=== PATIENT | female | born 1990 | race Hispanic/Latino ===

== ENCOUNTER 2021-01-02 02:44 | Emergency (ER) | payer SELFPAY ==
[2021-01-02 03:02] LABS: Basophils % 0.4 % (0-1.3); Hematocrit 42.1 % (36.0-45.0); Lymphocytes % 23.4 % (15.3-44.8); MPV 10.7 fL (7.6-11.3); RBC Red Blood Cell Count 4.91 M/uL (3.86-4.86)
[2021-01-02] MEDS ORDERED: NA CHLORIDE 0.9% 1,000 ML ONE (03:18)
[2021-01-02 03:22] LABS: ALT/SGPT 32 U/L (12-78); AST/SGOT 17 U/L (15-37); Albumin 3.9 g/dL (3.4-5.0); Alkaline Phosphatase 86 U/L (45-117); BUN Blood Urea Nitrogen 11 mg/dL (7-18); Bicarbonate 24 mmol/L (21-32); Bilirubin Direct < 0.1 mg/dL (0-0.2); Bilirubin Total 0.2 mg/dL (0.2-1.0); Glucose Level 145 mg/dL (74-106); Lipase 65 U/L (73-393); Potassium 3.2 mmol/L (3.5-5.1); Protein, Total 8.1 g/dL (6.4-8.2); Sodium Level 141 mmol/L (136-145)
--- NOTE | 2021-01-02 03:36 | EDPHYS ---
Physician Documentation [facility] Name: Batsheva Campbell Age: 30 yrs Sex: Female : 1990 Arrival Date: 01/02/2021 Time: 02:45 Bed 8 Private MD: POLA Physician Tyrel Holman HPI: 01/02 03:31 This 30 yrs old Female presents to ER via EMS with complaints of vomiting and kelvin diarrhea. 03:31 The patient presents with abdominal pain in the upper abdomen, in the lower abdomen. kelvin Onset: The symptoms/episode began/occurred 3 day(s) ago. The patient presents to the emergency department with nausea, vomiting, diarrhea, that is intermittent. Onset: The symptoms/episode began/occurred 3 day(s) ago. Possible causes: unknown. The symptoms are aggravated by nothing. The symptoms are alleviated by nothing. The symptoms do not radiate. Associated signs and symptoms: The patient has no apparent associated signs or symptoms. 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 - Social history:: Smoking status: Patient reports the use of cigarette tobacco products, smokes one-half pack cigarettes per day. - Family history:: not pertinent. ROS: 03:31 Constitutional: Negative for fever, chills, and weight loss, Eyes: Negative for injury, kelvin pain, redness, and discharge, ENT: Negative for injury, pain, and discharge, Neck: Negative for injury, pain, and swelling, Cardiovascular: Negative for chest pain, palpitations, and edema, Respiratory: Negative for shortness of breath, cough, wheezing, and pleuritic chest pain, Back: Negative for injury and pain, : Negative for injury, bleeding, discharge, and swelling, MS/Extremity: Negative for injury and deformity, Skin: Negative for injury, rash, and discoloration, Neuro: Negative for headache, weakness, numbness, tingling, and seizure, Psych: Negative for depression, anxiety, suicide ideation, homicidal ideation, and hallucinations, Allergy/Immunology: Negative for hives, rash, and allergies, Endocrine: Negative for neck swelling, polydipsia, polyuria, polyphagia, and marked weight changes, Hematologic/Lymphatic: Negative for swollen nodes, abnormal bleeding, and unusual bruising. 03:31 Abdomen/GI: Positive for abdominal pain, nausea and vomiting, diarrhea, abdominal cramps. Exam: 03:31 Constitutional: This is a well developed, well nourished patient who is awake, alert, kelvin and in no acute distress. Head/Face: Normocephalic, atraumatic. Eyes: Pupils equal round and reactive to light, extra-ocular motions intact. Lids and lashes normal. Conjunctiva and sclera are non-icteric and not injected. Cornea within normal limits. Periorbital areas with no swelling, redness, or edema. ENT: Nares patent. No nasal discharge, no septal abnormalities noted. Tympanic membranes are normal and external auditory canals are clear. Oropharynx with no redness, swelling, or masses, exudates, or evidence of obstruction, uvula midline. Mucous membranes moist. Neck: Trachea midline, no thyromegaly or masses palpated, and no cervical lymphadenopathy. Supple, full range of motion without nuchal rigidity, or vertebral point tenderness. No Meningismus. Chest/axilla: Normal chest wall appearance and motion. Nontender with no deformity. No lesions are appreciated. Cardiovascular: Regular rate and rhythm with a normal S1 and S2. No gallops, murmurs, or rubs. Normal PMI, no JVD. No pulse deficits. Respiratory: Lungs have equal breath sounds bilaterally, clear to auscultation and percussion. No rales, rhonchi or wheezes noted. No increased work of breathing, no retractions or nasal flaring. Abdomen/GI: Soft, non-tender, with normal bowel sounds. No distension or tympany. No guarding or rebound. No evidence of tenderness throughout. Back: No spinal tenderness. No costovertebral tenderness. Full range of motion. Skin: Warm, dry with normal turgor. Normal color with no rashes, no lesions, and no evidence of cellulitis. MS/ Extremity: Pulses equal, no cyanosis. Neurovascular intact. Full, normal range of motion. Neuro: Awake and alert, GCS 15, oriented to person, place, time, and situation. Cranial nerves II-XII grossly intact. Motor strength 5/5 in all extremities. Sensory grossly intact. Cerebellar exam normal. Normal gait. Psych: Awake, alert, with orientation to person, place and time. Behavior, mood, and affect are within normal limits. 03:31 Musculoskeletal/extremity: DVT Exam: No signs of deep vein thrombosis. no pain, no swelling, no tenderness, negative Homans' sign noted on exam, no appreciated bluish discoloration, no erythema, no increased warmth. Vital Signs: 02:45 BP 137 / 93; Pulse 107; Resp 18; Temp 99.5; Pulse Ox 99% on R/A; Weight 86.64 kg; wg Height 5 ft. 4 in. (162.56 cm); Pain 9/10; 03:12 BP 131 / 85; Pulse 99; Resp 18; Pulse Ox 94% ; ea 02:45 Body Mass Index 32.78 (86.64 kg, 162.56 cm) wg MDM: 03:16 Patient medically screened. kelvin 03:33 Differential diagnosis: Nonspecific abd pain, gastritis, cholecystitis, pancreatitis, kelvin diverticulitis, viral gastroenteritis, gastroenteritis, appendicitis, cholecystitis, Cholelithiasis, diverticulitis, gastritis, non-specific abd pain, Peptic Ulcer Disease, Pyelonephritis, urinary tract infection. Data reviewed: vital signs, nurses notes, lab test result(s), CBC, electrolytes, hepatic panel. Data interpreted: property assessment monitor: rate is 99 beats/min, rhythm is regular, Pulse oximetry: on room air is 94 %. Counseling: I had a detailed discussion with the patient and/or guardian regarding: the historical points, exam findings, and any diagnostic results supporting the discharge/admit diagnosis, lab results, radiology results, the need for outpatient follow up, for definitive care, a family practitioner. 01/02 02:45 Order name: Basic Metabolic Panel; Complete Time: 03:30 wg 01/02 02:45 Order name: CBC with Diff; Complete Time: 03:17 wg 01/02 02:45 Order name: Hepatic Function; Complete Time: 03:30 wg 01/02 02:45 Order name: Lipase; Complete Time: 03:30 wg 01/02 03:50 Order name: Urine Dipstick-Ancillary; Complete Time: 04:24 EDMS 01/02 02:45 Order name: IV Saline Lock; Complete Time: 02:59 wg 01/02 02:45 Order name: Labs collected and sent; Complete Time: 02:59 01/02 02:45 Order name: Urine Dipstick-Ancillary (obtain specimen); Complete Time: 04:07 01/02 04:21 Order name: SARS-COV-2 RT PCR; Complete Time: 04:24 EDMS Administered Medications: 02:58 Drug: NS 0.9% 1000 ml Route: IV; Rate: 1 bolus; Site: left hand; ea 05:08 Follow up: Response: No adverse reaction; IV Status: Completed infusion; IV Intake: ea 800ml 03:43 Drug: Potassium Effervescent Tablet 25 mEq Route: PO; ea 04:06 Follow up: Response: No adverse reaction ea Disposition Summary: 01/02/21 03:35 Discharge Ordered Location: Home [facility] Problem: new kelvin Symptoms: have improved kelvin Condition: Stable kelvin Diagnosis - Vomiting kelvin - Diarrhea, unspecified kelvin - Hypokalemia kelvin Followup: kelvin - With: Private Physician - When: 2 - 3 days - Reason: Recheck today's complaints, Continuance of care, Re-evaluation by your physician Discharge Instructions: - Discharge Summary Sheet kelvin - Food Choices to Help Relieve Diarrhea, Adult kelvin - Diarrhea, Adult kelvin - Nausea and Vomiting, Adult kelvin - Nausea and Vomiting, Adult, [id number] kelvin - Potassium Content of Foods kelvin - Diarrhea, Adult, Qums-de-Keji kelvin - Hypokalemia [facility] Forms: - Medication Reconciliation Form [facility] - Thank You Letter kelvin - Antibiotic Education kelvin - Prescription Opioid Use [facility] Prescriptions: - Zofran 4 mg Oral Tablet - take 1 tablet by ORAL route every 12 hours As needed; 20 tablet; Refills: 0, kelvin Product Selection Permitted Signatures: Dispatcher [employer] Tyrel Duran MD MD cha Munoz, Edgar, RN RN Tonja Clark RN Arturo Banks ea, RN
--- NOTE | 2021-01-02 03:36 | ER ---
Nurse's Notes [facility] Name: Batsheva Campbell Age: 30 yrs Sex: Female : 1990 Arrival Date: 01/02/2021 Time: 02:45 Bed 8 Private MD: Diagnosis: Vomiting;Diarrhea, unspecified;Hypokalemia Presentation: 01/02 02:45 Chief complaint: Patient states: Pt states she has had N/V/D x 4 days. Vomited while wg enroute with EMS. Several episodes of liquid diarrhea. Hx of diverticulitis. According to pt had syncopal episiode tonight and bumped her head. No c/o head injury. Pt denies SOB, CP and states she had abd pain from vomiting/diarrhea. EMS gave 4mg zofran . Coronavirus screen: Vaccine status: Patient reports being unvaccinated. At this time, the client does not indicate any symptoms associated with coronavirus-19. Ebola Screen: Patient negative for fever greater than or equal to 101.5 degrees Fahrenheit, and additional compatible Ebola Virus Disease symptoms Patient denies exposure to infectious person. Patient denies travel to an Ebola-affected area in the 21 days before illness onset. No symptoms or risks identified at this time. Initial Sepsis Screen: Does the patient meet any 2 criteria? No. Patient's initial sepsis screen is negative. Does the patient have a suspected source of infection? No. Patient's initial sepsis screen is negative. Risk Assessment: Do you want to hurt yourself or someone else? Patient reports no desire to harm self or others. Onset of symptoms was December 29, 2020. 02:45 Method Of Arrival: EMS 02:45 Acuity: GARCÍA 3 wg Triage Assessment: 02:49 General: Appears uncomfortable, obese, well developed, Behavior is calm, cooperative, wg appropriate for age. Pain: Complains of pain in abdomen Pain currently is 9 out of 10 on a pain scale. Quality of pain is described as aching. 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 - Social history:: Smoking status: Patient reports the use of cigarette tobacco products, smokes one-half pack cigarettes per day. - Family history:: not pertinent. Screenin:56 Abuse screen: Denies threats or abuse. Nutritional screening: No deficits noted. ea Tuberculosis screening: No symptoms or risk factors identified. Fall Risk None identified. Assessment: 02:57 General: Appears in no apparent distress. Behavior is calm, cooperative, appropriate ea for age. Pain: Complains of pain in abdomen. Neuro: Level of Consciousness is awake, alert, obeys commands, Oriented to person, place, time. Cardiovascular: Patient's skin is warm and dry. Respiratory: Airway is patent Respiratory effort is even, unlabored, Respiratory pattern is regular, symmetrical. Derm: Skin is pink, warm \T\ dry. 04:08 Reassessment: Patient and/or family updated on plan of care and expected duration. Pain ea level reassessed. Patient is alert, oriented x 3, equal unlabored respirations, skin warm/dry/pink. Pt awaiting on ride. 05:07 Reassessment: Patient and/or family updated on plan of care and expected duration. Pain ea level reassessed. Patient is alert, oriented x 3, equal unlabored respirations, skin warm/dry/pink. Pt left ED ambulatory accompanied by significant other. Vital Signs: 02:45 BP 137 / 93; Pulse 107; Resp 18; Temp 99.5; Pulse Ox 99% on R/A; Weight 86.64 kg; wg Height 5 ft. 4 in. (162.56 cm); Pain 9/10; 03:12 BP 131 / 85; Pulse 99; Resp 18; Pulse Ox 94% ; ea 02:45 Body Mass Index 32.78 (86.64 kg, 162.56 cm) wg ED Course: 02:45 Patient arrived in ED. wg 02:49 Triage completed. wg 02:49 Arm band placed on right wrist. wg 02:52 Maintain EMS IV. Dressing intact. Good blood return noted. Site clean \T\ dry. Gauge \T\ wg site: 22g. Left hand. 02:56 Patient has correct armband on for positive identification. Bed in low position. Call ea light in reach. 03:02 Tonja Younger RN is Primary Nurse. ea 03:16 Tyrel Holman MD is Attending Physician. kelvin 04:08 No provider procedures requiring assistance completed. ea 05:07 IV discontinued, intact, bleeding controlled, No redness/swelling at site. Pressure ea dressing applied. Administered Medications: 02:58 Drug: NS 0.9% 1000 ml Route: IV; Rate: 1 bolus; Site: left hand; ea 05:08 Follow up: Response: No adverse reaction; IV Status: Completed infusion; IV Intake: ea 800ml 03:43 Drug: Potassium Effervescent Tablet 25 mEq Route: PO; ea 04:06 Follow up: Response: No adverse reaction ea Intake: 05:08 IV: 800ml; Total: 800ml. ea Outcome: 03:35 Discharge ordered by MD. the [facility] 04:08 Instructed on discharge instructions, follow up and referral plans. medication usage, ea Demonstrated understanding of instructions, follow-up care, medications. 05:07 Discharged to home ambulatory, with family. ea 05:07 Condition: stable 05:08 Patient left the ED. ea Signatures: Tyrel Holman MD MD cha Antunez, Elena, RN RN Arturo Guzman RN wg Corrections: (The following items were deleted from the chart) 04:08 04:08 Instructed on discharge instructions, follow up and referral plans. medication ea usage, ea
[2021-01-02 03:50] LABS: Urine Blood 1+ (Negative); Urine Glucose Negative (Negative); Urine Protein 2+ (Negative); Urine Specific Gravity >=1.030 (1.005-1.030)
[2021-01-02] MEDS ORDERED: POTASSIUM 25 MEQ EFFERV TAB ONE (04:05)
[2021-01-02 05:30] VITALS: TEMP 99.5
[2021-01-02 05:32] VITALS: BP 131/85; O2SAT 94
== END 2021-01-02 05:08 | disposition home or self-care (01) ==
LOC: ER 02:44
DX: R11.10 Vomiting, unspecified (principal); R19.7 Diarrhea, unspecified; E87.6 Hypokalemia; F17.210 Nicotine dependence, cigarettes, uncomplicated; Z20.822 Contact with and (suspected) exposure to COVID-19
CPT/HCPCS: 36415; 80048; 80076; 81003; 83690; 85025; 96360; 96361; 99283; J7030; U0003

== ENCOUNTER 2021-01-22 21:27 | Emergency (ER) | payer SELFPAY ==
[2021-01-22 22:47] LABS: Urine Blood 2+ (Negative); Urine Glucose Negative (Negative); Urine Protein Negative (Negative); Urine Specific Gravity >=1.030 (1.005-1.030); Urine pH 5.5 (5.0-7.0)
[2021-01-22 23:00] LABS: Absolute Lymphocytes (CBC) 4.2 K/uL (0.7-4.9); Basophils % 0.8 % (0-1.3); Lymphocytes % 37.3 % (15.3-44.8); MPV 11.1 fL (7.6-11.3); RBC Red Blood Cell Count 4.71 M/uL (3.86-4.86)
[2021-01-22 23:58] LABS: ALT/SGPT 38 U/L (12-78); Albumin 4.2 g/dL (3.4-5.0); Alkaline Phosphatase 132 U/L (45-117); BUN Blood Urea Nitrogen 13 mg/dL (7-18); Bicarbonate 23 mmol/L (21-32); Bilirubin Direct < 0.1 mg/dL (0-0.2); Bilirubin Total 0.2 mg/dL (0.2-1.0); Glucose Level 95 mg/dL (74-106); Lipase 103 U/L (73-393); Protein, Total 8.5 g/dL (6.4-8.2); Sodium Level 140 mmol/L (136-145)
[2021-01-22 23:59] LABS: AST/SGOT 22 U/L (15-37); Potassium 3.9 mmol/L (3.5-5.1)
--- NOTE | 2021-01-23 00:21 | ER ---
Nurse's Notes [facility] Name: Batsheva Bartlett Age: 30 yrs Sex: Female : 1990 Arrival Date: 01/22/2021 Time: 21:29 Bed 27 Private MD: Diagnosis: Abnormal uterine and vaginal bleeding, unspecified Presentation: 01/22 21:46 Chief complaint: Patient states: vaginal bleeding x 1 month intermittent. Coronavirus ss screen: Vaccine status: Patient reports being unvaccinated. The client reports previous COVID testing was negative. Date of collection: January 11, 2021. Ebola Screen: Patient negative for fever greater than or equal to 101.5 degrees Fahrenheit, and additional compatible Ebola Virus Disease symptoms Patient denies exposure to infectious person. Patient denies travel to an Ebola-affected area in the 21 days before illness onset. Initial Sepsis Screen: Does the patient meet any 2 criteria? No. Patient's initial sepsis screen is negative. Does the patient have a suspected source of infection? No. Patient's initial sepsis screen is negative. Risk Assessment: Do you want to hurt yourself or someone else? Patient reports no desire to harm self or others. Onset of symptoms was December 26, 2020. 21:46 Method Of Arrival: Ambulatory ss 21:46 Acuity: GARCÍA 3 ss 21:49 Note Pt states vaginal bleeding x 1 month with lower abd pain and nausea. Triage Assessment: 01/23 01:00 General: Appears in no apparent distress. comfortable, Behavior is calm, cooperative, bc5 appropriate for age. Pain: Complains of pain in abdomen. : Reports vaginal bleeding that is brown, with clots, spotty. 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 - Social history:: Smoking status: Patient denies any tobacco usage or history of. Screenin/13 01:00 Abuse screen: Denies threats or abuse. Denies injuries from another. Nutritional bc5 screening: No deficits noted. Tuberculosis screening: No symptoms or risk factors identified. Fall Risk No fall in past 12 months (0 pts). No secondary diagnosis (0 pts). No IV (0 pts). Ambulatory Aid- None/Bed Rest/Nurse Assist (0 pts). Gait- Normal/Bed Rest/Wheelchair (0 pts) Mental Status- Oriented to own ability (0 pts). Assessment: 01:01 : Urine is clear. bc5 Vital Signs: 01/22 21:46 BP 140 / 97; Pulse 90; Resp 18; Temp 97.7; Pulse Ox 99% ; Weight 83.91 kg; Height 5 ft. ss 4 in. (162.56 cm); Pain 1010; 01/23 01:02 BP 127 / 84; Pulse 81; Resp 16; Temp 98(O); Pulse Ox 100% on R/A; Pain 0/10; bc5 01/22 21:46 Body Mass Index 31.75 (83.91 kg, 162.56 cm) ED Course: 01/22 21:29 Patient arrived in ED. bp1 21:30 Claudia Mane FNP-C is [facility]. kb 21:30 Tyrel Holman MD is Attending Physician. kb 21:48 Triage completed. ss 22:11 Lupe Beltrán, RN is Primary Nurse. bc5 01/23 01:01 Arm band placed on left wrist. bc5 01:01 Bed in low position. Call light in reach. Side rails up X 1. bc5 01:01 No provider procedures requiring assistance completed. Patient did not have IV access bc5 during this emergency room visit. Administered Medications: 01:02 Drug: Ketorolac 15 mg Route: IVP; Site: Other; bc5 01:02 Follow up: Response: Medication administered at discharge. bc5 Outcome: 00:20 Discharge ordered by . kb 01:01 Discharged to home ambulatory. bc5 01:01 Condition: improved 01:01 Discharge instructions given to patient, Instructed on discharge instructions, follow up and referral plans. 01:03 Patient left the ED. bc5 Signatures: Claudia Mane FNP-C FNP-Milka Rodriguez RN RN Monique Ordaz [facility] Lupe Beltrán, RN RN bc5 Corrections: (The following items were deleted from the chart) 01/22 21:49 21:48 PSHx: None; ss ss
--- NOTE | 2021-01-23 00:21 | EDPHYS ---
Physician Documentation [facility] Name: Batsheva Bartlett Age: 30 yrs Sex: Female : 1990 Arrival Date: 01/22/2021 Time: 21:29 Bed 27 Private MD: ED Physician Tyrel Holman HPI: 01/23 00:23 This 30 yrs old Female presents to ER via Ambulatory with complaints of kb Vaginal Bleeding, Abdominal Burn. 00:23 The patient presents with vaginal bleeding that is moderate. Onset: The kb symptoms/episode began/occurred 1 month(s) ago. Modifying factors: The symptoms are alleviated by nothing, the symptoms are aggravated by nothing. Associated signs and symptoms: Pertinent positives: vaginal bleeding. Severity of symptoms: At their worst the symptoms were moderate, in the emergency department the symptoms are unchanged. The patient has not experienced similar symptoms in the past. The patient has not recently seen a physician. Pt reports vaginal bleeding and abd cramps for a month. 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 - Social history:: Smoking status: Patient denies any tobacco usage or history of. ROS: 01/23 00:23 Constitutional: Negative for fever, chills, and weight loss. kb : Positive for vaginal bleeding. All other systems are negative. 00:23 Abdomen/GI: Positive for abdominal cramps. kb Exam: 00:23 Constitutional: This is a well developed, well nourished patient who is awake, alert, kb and in no acute distress. Head/Face: Normocephalic, atraumatic. ENT: Moist Mucous membranes Respiratory: Respirations even and unlabored. No increased work of breathing, no retractions or nasal flaring. Abdomen/GI: Soft, non-tender. No distention Skin: Warm, dry with normal turgor. Normal color. MS/ Extremity: Pulses equal, no cyanosis. Neurovascular intact. Full, normal range of motion. Neuro: Awake and alert, GCS 15, oriented to person, place, time, and situation. Moves all extremities. Normal gait. Psych: Awake, alert, with orientation to person, place and time. Behavior, mood, and affect are within normal limits. Vital Signs: 01/22 21:46 BP 140 / 97; Pulse 90; Resp 18; Temp 97.7; Pulse Ox 99% ; Weight 83.91 kg; Height 5 ft. ss 4 in. (162.56 cm); Pain 10; 01/23 01:02 BP 127 / 84; Pulse 81; Resp 16; Temp 98(O); Pulse Ox 100% on R/A; Pain 0/10; bc5 01/22 21:46 Body Mass Index 31.75 (83.91 kg, 162.56 cm) ss MDM: 01/22 21:49 Patient medically screened. kb 01/23 00:22 Data reviewed: vital signs, nurses notes. Data interpreted: Pulse oximetry: on room air kb is 99 %. Interpretation: normal. Counseling: I had a detailed discussion with the patient and/or guardian regarding: the historical points, exam findings, and any diagnostic results supporting the discharge/admit diagnosis, lab results, radiology results, the need for outpatient follow up, an OB/Gyne specialist, to return to the emergency department if symptoms worsen or persist or if there are any questions or concerns that arise at home. 01/22 21:49 Order name: Basic Metabolic Panel; Complete Time: 00:01 kb 01/22 21:49 Order name: CBC with Diff; Complete Time: 23:02 kb 01/22 21:49 Order name: Hepatic Function; Complete Time: 00:01 kb 01/22 21:49 Order name: Lipase; Complete Time: 00:01 kb 01/22 22:47 Order name: Urine Dipstick-Ancillary; Complete Time: 22:54 EDMS 01/22 22:48 Order name: Urine --Ancillary (enter results); Complete Time: 00:19 wg 01/22 21:49 Order name: IV Saline Lock; Complete Time: 22:42 kb 01/22 21:49 Order name: Labs collected and sent; Complete Time: 22:42 kb 01/22 21:49 Order name: Urine Dipstick-Ancillary (obtain specimen); Complete Time: 22:48 kb 01/22 21:49 Order name: Urine Test (obtain specimen); Complete Time: 22:48 kb Administered Medications: 01:02 Drug: Ketorolac 15 mg Route: IVP; Site: Other; [facility] 01:02 Follow up: Response: Medication administered at discharge. [facility] Disposition: 07:56 Co-signature as Attending Physician, Tyrel Holman MD I agree with the assessment and kelvin plan of care. Disposition Summary: 01/23/21 00:20 Discharge Ordered Location: Home kb Condition: Stable kb Diagnosis - Abnormal uterine and vaginal bleeding, unspecified kb Followup: kb - With: Emergency Department - When: As needed - Reason: Worsening of condition Followup: kb - With: Private Physician - When: 2 - 3 days - Reason: Recheck today's complaints, Continuance of care, Re-evaluation by your physician Discharge Instructions: - Discharge Summary Sheet kb - Abnormal Uterine Bleeding, [id number] kb Forms: - Medication Reconciliation Form kb - Thank You Letter kb - Antibiotic Education kb - Prescription Opioid Use kb Signatures: Dispatcher [employer] EDMO Claudia Mane, COLTEN-C UNDERWRITER MORTGAGE LOAN-Tyrel Maria MD MD cha Smirch, Shelby, LEONORA RN Lupe Garner RN RN 5 Corrections: (The following items were deleted from the chart) 01/22 21:49 21:48 PSHx: None; ss ss
[2021-01-23 01:13] VITALS: BP 127/84; TEMP 98; O2SAT 100
[2021-01-23] MEDS ORDERED: KETOROLAC 30 MG/ML INJ ONE (01:20)
== END 2021-01-23 01:03 | disposition home or self-care (01) ==
LOC: ER 21:27
DX: N93.9 Abnormal uterine and vaginal bleeding, unspecified (principal)
CPT/HCPCS: 36415; 80048; 80076; 81003; 81025; 83690; 85025; 96374; 99283

== ENCOUNTER 2023-02-04 17:35 | Emergency (ER) | payer SELFPAY ==
--- OUTSIDE RECORDS SUMMARY | 2023-02-04 17:38 | XMS REPORT | Continuity of Care Document ---
:[address] [facility] t Address [address] [place] [address] [address] [place] [address] Care Team Providers Name Role Phone Latha Lynn Primary Care Physician [phone] NIMA GUALLPA Attending Clinician Unavailable Nima Guallpa MD Attending Clinician HUGH WIN Attending Clinician Unavailable WILLIAM KING Attending Clinician Unavailable William King MD Attending Clinician LESLIE SAUCEDA Attending Clinician Unavailable LESLIE SAUCEDA Attending Clinician Unavailable CHRISTIANA DIEZ Attending Clinician Unavailable Leticia Corona Attending Clinician Doctor Unassigned, [place] Attending Clinician Unavailable LETICIA HALL Attending Clinician Unavailable Lab, Ang - Db Attending Clinician Unavailable Smith Dennis MD Attending Clinician SMITH DENNIS Attending Clinician Unavailable Elisa Banks LMSW Attending Clinician Unavailable SMITH DENNIS Admitting Clinician Unavailable Payers Payer Name Policy Type Policy Number Effective Date Expiration Date [place] [employer] BLUE [id number] 2022 ADVANTAGE HMO 00:00:00 Problems Condition Condition Condition Status Onset Resolution Last Treating Co mments Source Name Details Category Date Date Treatment Clinician Date Cervicalgi Cervicalgi Disease Active 2021-04 U nivers a a -14 ity of 00:00: [place] [facility] Rib pain Rib pain Disease Active 2021-04 Unive rs on left on left -14 ity of side side 00:00: [place] 00 Medical Branch Chronic Chronic Disease Active 2021-04 Univers left left 14 ity of shoulder shoulder 00:00: [place] pain pain 00 Medical Branch Need for Need for Disease Active 2021-04 Unive rs vaccinatio vaccinatio 04-26 it y of n n 00:00: [place] 00 Medical Branch Encounter Encounter Disease Active 2021-04 Uni vers to to 04-26 [place] of establish establish 00:[place] Disease Active 2018-04 Univers premature premature 0-17 [place] of rupture [place] membranes membranes [address] [place] [address] Thrombocyt Thrombocyt Disease Active Overview : Univers [employer] openia 07-13 Formattin ity of 00:00: g of this [place] note Medical might be Branch different from the original. ICD10 Diagnosis Term Electrocardiogram Technician Utility Thrombocyt Thrombocyt Disease Active Overview : Univers openia openia 402 Formatt[place] ity of 00:00: g of this [place] note Medical might be Branch different from the original. ICD10 Diagnosis Term Electrocardiogram Technician Utility Breast Breast Disease Active 2012-04 Univers tenderness tenderness 04-13 it y of in female in female 00:[facility]: [facility] Allergies, Adverse Reactions, Alerts Allergy Allergy Status Severity Reaction(s) Onset Inactive Treating Comm ents Source Name Type Date Date Clinician NO KNOWN Drug Active Univers ALLERGIE Class ity of S [facility] Social History Social Habit Start Date Stop Date Quantity Comments Source Gender identity Universit y of [facility] [place] [facility] intake 2022-12-21 2022-12-21 Current University of 00:00:00 00:00:00 non-drinker of [facility] alcohol Branch (finding) Exposure to 2022-03-23 2022-04-02 Not sure University of SARS-CoV-2 (event) 00:00:00 02:34:00 [facility] History of Social 2022-02-24 2022-02-24 Univers ity of function 00:00:00 00:00:00 [facility] Education 2019-01-27 2019-01-27 9 University 00:00:00 00:00:00 [facility] Tobacco use and 2013-02-11 2013-02-11 Smokeless Universit y of exposure 00:00:00 00:00:00 tobacco non-user [facility] Sex Ass[birth year] Universit y of 00:00:00 00:00:00 [facility] Smoking Status Start Date Stop Date Source Never smoked tobacco [facility] Medications Ordered Filled Start Stop Current Ordering Indication Dosage Frequency Signature Comments Components Source Medication Medication Date Date Medication? Clinician (SIG) Name Name ondansetron 2021-04 No 4mg 4 mg, Univ ers (ZOFRAN-ODT -04-02 Oral, ity of ) 10:15: 09:11 ONCE, 1 [place] disintegrat 00 :00 dose, On Medi eris ing tablet Wed Branch 4 mg 04/02/22 at 0415, SHITAL acetaminoph 2021-04 No 650mg 650 mg, U nivers en -04-02 Oral, ity of (TYLENOL) 09:15: 09:11 ONCE, 1 [place] tablet 650 00 :00 dose, On Medic al mg Wed Branch 04/02/22 at 0315, SHITAL ondansetron 2021-04 Yes [id number] 4mg Take 1 Univers 4 mg 2-21 tablet by ity of disintegrat 00:00: mouth [place] ing tablet 00 every 8 Medica l (eight) Branch hours as needed for Nausea and Vomiting (N/V). ibuprofen 2021-04 Yes [id number] 600mg Take 1 U nivers 600 mg 2-21 tablet by ity of tablet 00:00: mouth [place] 00 every 8 Medical (eight) Branch hours as needed for Pain (scale 4-6) or Temp > 38.5 C. ondansetron 2021-04 Yes [id number] 4mg Take 1 Univers 4 mg 2-21 tablet by ity of disintegrat 00:00: mouth [place] ing tablet 00 every 8 Medica l (eight) Branch hours as needed for Nausea and Vomiting (N/V). ibuprofen 2021-04 Yes [id number] 600mg Take 1 U nivers 600 mg 2-21 tablet by ity of tablet 00:00: mouth [place] 00 every 8 Medical (eight) Branch hours as needed for Pain (scale 4-6) or Temp > 38.5 C. cefdinir 2021-04- [id number] 300mg Take 1 Univers 300 mg 2-21 -29 capsule by ity of capsule 00:00: 05:59 mouth in [place] 00 :00 the Medical morning Branch and 1 capsule in the evening. Do all this for 7 days. cyclobenzap 2021-04 Yes [id number] 5mg Take 1 Univers rine 5 mg 1-14 [id number] tablet by ity of tablet 00:00: mouth in [place] 00 the Medical morning Branch and 1 tablet at noon and 1 tablet in the evening. cyclobenzap 2021-04 Yes [id number] 5mg Take 1 Univers rine 5 mg 1-14 [id number] tablet by ity of tablet 00:00: mouth in [place] [address] [facility] morning [place] and 1 tablet at noon and 1 tablet in the evening. cyclobenzap 2021-04 Yes [id number] 5mg Take 1 Univers rine 5 mg 1-14 [id number] tablet by ity of tablet 00:00: mouth in [place] [address] [facility] morning [place] and 1 tablet at noon and 1 tablet in the evening. cyclobenzap 2021-04 Yes [id number] 5mg Take 1 Univers rine 5 mg 1-14 [id number] tablet by ity of tablet 00:00: mouth in [place] [address] [facility] morning [place] and 1 tablet at noon and 1 tablet in the evening. cyclobenzap 2021-04 Yes [id number] 5mg Take 1 Univers rine 5 mg 1-14 [id number] tablet by ity of tablet 00:00: mouth in [place] [address] [facility] morning [place] and 1 tablet at noon and 1 tablet in the evening. cyclobenzap 2021-04 Yes [id number] 5mg Take 1 Univers rine 5 mg 1-14 [id number] tablet by ity of tablet 00:00: mouth in [place] [address] [facility] morning [place] and 1 tablet at noon and 1 tablet in the evening. cyclobenzap 2021-04 Yes [id number] 5mg Take 1 Univers rine 5 mg 1-14 [id number] tablet by ity of tablet 00:00: mouth in [address] morning [place] and 1 tablet at noon and 1 tablet in the evening. cyclobenzap 2022-1 Yes [id number] 5mg Take 1 Univers rine 5 mg 1-14 [id number] tablet by ity of tablet 00:00: mouth in [place] 00 the Medical morning Branch and 1 tablet at noon and 1 tablet in the evening. cyclobenzap 2021-04 Yes [id number] 5mg Take 1 Univers rine 5 mg 1-14 [id number] tablet by ity of tablet 00:00: mouth in [place] 00 the Medical morning Branch and 1 tablet at noon and 1 tablet in the evening. cyclobenzap 2021-04 Yes [id number] 5mg Take 1 Univers rine 5 mg 1-14 [id number] tablet by ity of tablet 00:00: mouth in [place] 00 the Medical morning Branch and 1 tablet at noon and 1 tablet in the evening. cyclobenzap 2021-04 Yes [id number] 5mg Take 1 Univers rine 5 mg 1-14 [id number] tablet by ity of tablet 00:00: mouth in [place] 00 the Medical morning Branch and 1 tablet at noon and 1 tablet in the evening. cyclobenzap 2021-04 Yes [id number] 5mg Take 1 Univers rine 5 mg 1-14 [id number] tablet by ity of tablet 00:00: mouth in [place] 00 the Medical morning Branch and 1 tablet at noon and 1 tablet in the evening. cyclobenzap 2021-04 Yes [id number] 5mg Take 1 Univers rine 5 mg 1-14 [id number] tablet by ity of tablet 00:00: mouth in [place] 00 the Medical morning Branch and 1 tablet at noon and 1 tablet in the evening. cyclobenzap 2021-04 Yes [id number] 5mg Take 1 Univers rine 5 mg 1-14 [id number] tablet by ity of tablet 00:00: mouth in [place] 00 the Medical morning Branch and 1 tablet at noon and 1 tablet in the evening. cyclobenzap 2021-04 Yes [id number] 5mg Take 1 Univers rine 5 mg 1-14 [id number] tablet by ity of tablet 00:00: mouth in [place] 00 the Medical morning Branch and 1 tablet at noon and 1 tablet in the evening. cyclobenzap 2021-04 Yes [id number] 5mg Take 1 Univers rine 5 mg 1-14 [id number] tablet by ity of tablet 00:00: mouth in [place] 00 the Medical morning Branch and 1 tablet at noon and 1 tablet in the evening. iopamidol 2021-04- No [id number] 100mL 100 mL, Univers (ISOVUE 0-26 - Intravenou ity o f 370-500 mL) 05:45: 05:45 s, ONCE, 1 [place] injection 00 :00 dose, On Medica l 100 mL Wed Branch 02/05/22 at 0045, Routine morpHINE (4 2021-04- No 4mg 4 mg, Slow Univers mg/mL) 0-02-05 IV Push, ity of injection 4 04:30: 04:26 ONCE, 1 [place] mg 00 :00 dose, On Medical Tue Branch 02/04/22 at 2330, STAT ondansetron 2021-04- No 4mg 4 mg, Slow Univers (ZOFRAN 0-26 02-05 IV Push, ity of (PF)) 04:30: 04:25 ONCE, 1 [place] injection 4 00 :00 dose, On Medi eris mg Tue Branch 02/04/22 at 2330, SHITAL ondansetron 2021-04 Yes [id number] 4mg Take 1 Univers 4 mg 0-26 tablet by ity of disintegrat 00:00: mouth [place] ing tablet 00 every 4 Medica l (four) Branch hours as needed for Nausea and Vomiting (N/V). dicyclomine 2021-04 Yes [id number] 20mg Take 1 Univers 20 mg 0-26 tablet by ity of tablet 00:00: mouth 4 [place] 00 (four) Medical times Branch daily. ondansetron 2021-04 Yes [id number] 4mg Take 1 Univers 4 mg 0-26 tablet by ity of disintegrat 00:00: mouth [place] ing tablet 00 every 4 Medica l (four) Branch hours as needed for Nausea and Vomiting (N/V). dicyclomine 2021-04 Yes [id number] 20mg Take 1 Univers 20 mg 0-26 tablet by ity of tablet 00:00: mouth 4 [place] 00 (four) Medical times Branch daily. ondansetron 2021-04 Yes [id number] 4mg Take 1 Univers 4 mg 0-26 tablet by ity of disintegrat 00:00: mouth [place] ing tablet 00 every 4 Medica l (four) Branch hours as needed for Nausea and Vomiting (N/V). dicyclomine 2021-04 Yes [id number] 20mg Take 1 Univers 20 mg 0-26 tablet by ity of tablet 00:00: mouth 4 [place] (four) Medical times Branch daily. ondansetron 2021-04 Yes [id number] 4mg Take 1 Univers 4 mg 0-26 tablet by ity of disintegrat 00:00: mouth [place] ing tablet 00 every 4 Medica l (four) Branch hours as needed for Nausea and Vomiting (N/V). dicyclomine 2021-04 Yes [id number] 20mg Take 1 Univers 20 mg 0-26 tablet by ity of tablet 00:00: mouth 4 [place] (four) Medical times Branch daily. ondansetron 2021-04 Yes [id number] 4mg Take 1 Univers 4 mg 0-26 tablet by ity of disintegrat 00:00: mouth [place] ing tablet 00 every 4 Medica l (four) Branch hours as needed for Nausea and Vomiting (N/V). dicyclomine 2021-04 Yes [id number] 20mg Take 1 Univers 20 mg 0-26 tablet by ity of tablet 00:00: mouth (four) Medical times Branch daily. ondansetron 2021-04 Yes [id number] 4mg Take 1 Univers 4 mg 0-26 tablet by ity of disintegrat 00:00: mouth [place] ing tablet 00 every 4 Medica l (four) Branch hours as needed for Nausea and Vomiting (N/V). dicyclomine 2021-04 Yes [id number] 20mg Take 1 Univers 20 mg 0-26 tablet by ity of tablet 00:00: mouth (four) Medical times Branch daily. ondansetron 2021-04 Yes [id number] 4mg Take 1 Univers 4 mg 0-26 tablet by ity of disintegrat 00:00: mouth [place] ing tablet 00 every 4 Medica l (four) Branch hours as needed for Nausea and Vomiting (N/V). dicyclomine 2021-04 Yes [id number] 20mg Take 1 Univers 20 mg 0-26 tablet by ity of tablet 00:00: mouth 4 [place] (four) Medical times Branch daily. ondansetron 2021-04 Yes [id number] 4mg Take 1 Univers 4 mg 0-26 tablet by ity of disintegrat 00:00: mouth [place] ing tablet 00 every 4 Medica l (four) Branch hours as needed for Nausea and Vomiting (N/V). dicyclomine 2021-04 Yes [id number] 20mg Take 1 Univers 20 mg 0-26 tablet by ity of tablet 00:00: mouth 4 [place] 00 (four) Medical times Branch daily. ondansetron 2021-04 Yes [id number] 4mg Take 1 Univers 4 mg 0-26 tablet by ity of disintegrat 00:00: mouth [place] ing tablet 00 every 4 Medica l (four) Branch hours as needed for Nausea and Vomiting (N/V). dicyclomine 2021-04 Yes [id number] 20mg Take 1 Univers 20 mg 0-26 tablet by ity of tablet 00:00: mouth 4 (four) Medical times Branch daily. ondansetron 2021- Yes [id number] 4mg Take 1 Univers 4 mg 0-26 tablet by ity of disintegrat 00:00: mouth [place] ing tablet 00 every 4 Medica l (four) Branch hours as needed for Nausea and Vomiting (N/V). dicyclomine 2021-04 Yes [id number] 20mg Take 1 Univers 20 mg 0-26 tablet by ity of tablet 00:00: mouth 4 (four) Medical times Branch daily. ondansetron 2021-04 Yes [id number] 4mg Take 1 Univers 4 mg 0-26 tablet by ity of disintegrat 00:00: mouth [place] ing tablet 00 every 4 Medica l (four) Branch hours as needed for Nausea and Vomiting (N/V). dicyclomine 2021-04 Yes [id number] 20mg Take 1 Univers 20 mg 0-26 tablet by ity of tablet 00:00: mouth (four) Medical times Branch daily. ondansetron 2021-04 Yes [id number] 4mg Take 1 Univers 4 mg 0-26 tablet by ity of disintegrat 00:00: mouth [place] ing tablet 00 every 4 Medica l (four) Branch hours as needed for Nausea and Vomiting (N/V). dicyclomine 2021- Yes [id number] 20mg Take 1 Univers 20 mg 0-26 tablet by ity of tablet 00:00: mouth 4 [place] (four) Medical times Branch daily. ondansetron 2021- Yes [id number] 4mg Take 1 Univers 4 mg 0-26 tablet by ity of disintegrat 00:00: mouth [place] ing tablet 00 every 4 Medica l (four) Branch hours as needed for Nausea and Vomiting (N/V). dicyclomine 2021-04 Yes [id number] 20mg Take 1 Univers 20 mg 0-26 tablet by ity of tablet 00:00: mouth 4 [place] 00 (four) Medical times Branch daily. ondansetron 2021-04 Yes [id number] 4mg Take 1 Univers 4 mg 0-26 tablet by ity of disintegrat 00:00: mouth [place] ing tablet 00 every 4 Medica l (four) Branch hours as needed for Nausea and Vomiting (N/V). dicyclomine 2021-04 Yes [id number] 20mg Take 1 Univers 20 mg 0-26 tablet by ity of tablet 00:00: mouth 4 [place] (four) Medical times Branch daily. ondansetron 2021-04 Yes [id number] 4mg Take 1 Univers 4 mg 0-26 tablet by ity of disintegrat 00:00: mouth [place] ing tablet 00 every 4 Medica l (four) Branch hours as needed for Nausea and Vomiting (N/V). dicyclomine 2021-04 Yes [id number] 20mg Take 1 Univers 20 mg 0-26 tablet by ity of tablet 00:00: mouth 4 (four) Medical times Branch daily. ondansetron 2021-04 Yes [id number] 4mg Take 1 Univers 4 mg 0-26 tablet by ity of disintegrat 00:00: mouth [place] ing tablet 00 every 4 Medica l (four) Branch hours as needed for Nausea and Vomiting (N/V). dicyclomine 2021-04 Yes [id number] 20mg Take 1 Univers 20 mg 0-26 tablet by ity of tablet 00:00: mouth 4 (four) Medical times Branch daily. ondansetron 2021-04 Yes [id number] 4mg Take 1 Univers 4 mg 0-26 tablet by ity of disintegrat 00:00: mouth [place] ing tablet 00 every 4 Medica l (four) Branch hours as needed for Nausea and Vomiting (N/V). dicyclomine 2021-04 Yes [id number] 20mg Take 1 Univers 20 mg 0-26 tablet by ity of tablet 00:00: mouth 4 [place] 00 (four) Medical times Branch daily. ondansetron 2021-04 Yes [id number] 4mg Take 1 Univers 4 mg 0-26 tablet by ity of disintegrat 00:00: mouth [place] ing tablet 00 every 4 Medica l (four) Branch hours as needed for Nausea and Vomiting (N/V). dicyclomine 2021-04 Yes [id number] 20mg Take 1 Univers 20 mg 0-26 tablet by ity of tablet 00:00: mouth 4 [place] 00 (four) Medical times Branch daily. naproxen 2021-04- No [id number] 500mg Take 1 U nivers 500 mg 0-26 11-06 tablet by ity of tablet 00:00: 04:59 mouth in [place] 00 :00 the Medical morning Branch and 1 tablet in the evening. Take with meals. Do all this for 10 days. esomeprazol Yes [id number] 20mg Take 20 mg Univers e (NEXIUM) 5-06 by mouth ity o f 20 mg 00:00: daily [place] capsule 00 before a Medical meal. [place] esomeprazol Yes [id number] 20mg Take 20 mg Univers e (NEXIUM) 5-06 by mouth ity o f 20 mg 00:00: daily [place] capsule 00 before a Medical meal. [place] esomeprazol Yes [id number] 20mg Take 20 mg Univers e (NEXIUM) 5-06 by mouth ity o f 20 mg 00:00: daily [place] capsule 00 before a Medical meal. [place] esomeprazol Yes [id number] 20mg Take 20 mg Univers e (NEXIUM) 5-06 by mouth ity o f 20 mg 00:00: daily [place] capsule 00 before a Medical meal. [place] esomeprazol Yes [id number] 20mg Take 20 mg Univers e (NEXIUM) 5-06 by mouth ity o f 20 mg 00:00: daily [place] capsule 00 before a Medical meal. [place] esomeprazol Yes [id number] 20mg Take 20 mg Univers e (NEXIUM) 5-06 by mouth ity o f 20 mg 00:00: daily [place] capsule 00 before a Medical meal. [place] esomeprazol Yes [id number] 20mg Take 20 mg Univers e (NEXIUM) 5-06 by mouth ity o f 20 mg 00:00: daily [place] capsule 00 before a Medical meal. Branch esomeprazol 0 Yes [id number] 20mg Take 20 mg Univers e (NEXIUM) 5-06 by mouth ity o f 20 mg 00:00: daily [place] capsule 00 before a Medical meal. Branch esomeprazol 0 Yes [id number] 20mg Take 20 mg Univers e (NEXIUM) 5-06 by mouth ity o f 20 mg 00:00: daily [place] capsule 00 before a Medical meal. Branch esomeprazol 0 Yes [id number] 20mg Take 20 mg Univers e (NEXIUM) 5-06 by mouth ity o f 20 mg 00:00: daily [place] capsule 00 before a Medical meal. Branch esomeprazol 0 Yes [id number] 20mg Take 20 mg Univers e (NEXIUM) 5-06 by mouth ity o f 20 mg 00:00: daily [place] capsule 00 before a Medical meal. Branch esomeprazol 0 Yes [id number] 20mg Take 20 mg Univers e (NEXIUM) 5-06 by mouth ity o f 20 mg 00:00: daily [place] capsule 00 before a Medical meal. Branch esomeprazol 0 Yes [id number] 20mg Take 20 mg Univers e (NEXIUM) 5-06 by mouth ity o f 20 mg 00:00: daily [place] capsule 00 before a Medical meal. Branch esomeprazol 0 Yes [id number] 20mg Take 20 mg Univers e (NEXIUM) 5-06 by mouth ity o f 20 mg 00:00: daily [place] capsule 00 before a Medical meal. Branch esomeprazol 0 Yes [id number] 20mg Take 20 mg Univers e (NEXIUM) 5-06 by mouth ity o f 20 mg 00:00: daily [place] capsule 00 before a Medical meal. Branch esomeprazol 0 Yes [id number] 20mg Take 20 mg Univers e (NEXIUM) 5-06 by mouth ity o f 20 mg 00:00: daily [place] capsule 00 before a Medical meal. Branch esomeprazol 0 Yes [id number] 20mg Take 20 mg Univers e (NEXIUM) 5-06 by mouth ity o f 20 mg 00:00: daily [place] capsule 00 before a Medical meal. Branch esomeprazol 2020-0 Yes [id number] 20mg Take 20 mg Univers e (NEXIUM) 5-06 by mouth ity o f 20 mg 00:00: daily [place] capsule 00 before a Medical meal. Branch esomeprazol 2020-0 Yes [id number] 20mg Take 20 mg Univers e (NEXIUM) 5-06 by mouth ity o f 20 mg 00:00: daily [place] capsule 00 before a Medical meal. Branch ondansetron 2020-0 Yes [id number] 4mg Take 1 Univers (ZOFRAN 5-06 tablet by ity of ODT) 4 mg 00:00: mouth [place] disintegrat 00 every 8 Medic al ing tablet (eight) Branch hours as needed for Nausea and Vomiting (N/V). ondansetron 2020-0 2- No [id number] 4mg Take 1 Univers (ZOFRAN 5-06 10-26 tablet by ity of ODT) 4 mg 00:00: 00:00 mouth [place] disintegrat 00 :00 every 8 Medic al ing tablet (eight) Branch hours as needed for Nausea and Vomiting (N/V). ondansetron 2020-0 Yes [id number] 4mg Take 1 Univers (ZOFRAN) 4 2-09 tablet by ity of mg tablet 00:00: mouth [place] 00 every 8 Medical (eight) Branch hours as needed for Nausea and Vomiting (N/V). ondansetron 2020-0 Yes [id number] 4mg Take 1 Univers (ZOFRAN) 4 2-09 tablet by ity of mg tablet 00:00: mouth [place] 00 every 8 Medical (eight) Branch hours as needed for Nausea and Vomiting (N/V). ondansetron 2020-0 Yes [id number] 4mg Take 1 Univers (ZOFRAN) 4 2-09 tablet by ity of mg tablet 00:00: mouth [place] 00 every 8 Medical (eight) Branch hours as needed for Nausea and Vomiting (N/V). ondansetron 2020-0 Yes [id number] 4mg Take 1 Univers (ZOFRAN) 4 2-09 tablet by ity of mg tablet 00:00: mouth [place] 00 every 8 Medical (eight) Branch hours as needed for Nausea and Vomiting (N/V). ondansetron 2021-0 Yes [id number] 4mg Take 1 Univers (ZOFRAN) 4 2-09 tablet by ity of mg tablet 00:00: mouth [place] 00 every 8 Medical (eight) Branch hours as needed for Nausea and Vomiting (N/V). ondansetron 1-0 Yes [id number] 4mg Take 1 Univers (ZOFRAN) 4 2-09 tablet by ity of mg tablet 00:00: mouth [place] 00 every 8 Medical (eight) Branch hours as needed for Nausea and Vomiting (N/V). ondansetron 2020-0 Yes [id number] 4mg Take 1 Univers (ZOFRAN) 4 2-09 tablet by ity of mg tablet 00:00: mouth [place] 00 every 8 Medical (eight) Branch hours as needed for Nausea and Vomiting (N/V). ondansetron 2020-0 Yes [id number] 4mg Take 1 Univers (ZOFRAN) 4 2-09 tablet by ity of mg tablet 00:00: mouth [place] 00 every 8 Medical (eight) Branch hours as needed for Nausea and Vomiting (N/V). ondansetron 2020-0 Yes [id number] 4mg Take 1 Univers (ZOFRAN) 4 2-09 tablet by ity of mg tablet 00:00: mouth [place] 00 every 8 Medical (eight) Branch hours as needed for Nausea and Vomiting (N/V). ondansetron 2020-0 Yes [id number] 4mg Take 1 Univers (ZOFRAN) 4 2-09 tablet by ity of mg tablet 00:00: mouth [place] 00 every 8 Medical (eight) Branch hours as needed for Nausea and Vomiting (N/V). ondansetron 2021-0 Yes [id number] 4mg Take 1 Univers (ZOFRAN) 4 2-09 tablet by ity of mg tablet 00:00: mouth [place] 00 every 8 Medical (eight) Branch hours as needed for Nausea and Vomiting (N/V). ondansetron 2021-0 Yes [id number] 4mg Take 1 Univers (ZOFRAN) 4 2-09 tablet by ity of mg tablet 00:00: mouth [place] 00 every 8 Medical (eight) Branch hours as needed for Nausea and Vomiting (N/V). ondansetron 2021-0 Yes [id number] 4mg Take 1 Univers (ZOFRAN) 4 2-09 tablet by ity of mg tablet 00:00: mouth [place] 00 every 8 Medical (eight) Branch hours as needed for Nausea and Vomiting (N/V). ondansetron 2020-0 Yes [id number] 4mg Take 1 Univers (ZOFRAN) 4 2-09 tablet by ity of mg tablet 00:00: mouth [place] 00 every 8 Medical (eight) Branch hours as needed for Nausea and Vomiting (N/V). ondansetron 0 Yes [id number] 4mg Take 1 Univers (ZOFRAN) 4 2-09 tablet by ity of mg tablet 00:00: mouth [place] 00 every 8 Medical (eight) Branch hours as needed for Nausea and Vomiting (N/V). ondansetron 2020-0 Yes [id number] 4mg Take 1 Univers (ZOFRAN) 4 2-09 tablet by ity of mg tablet 00:00: mouth [place] 00 every 8 Medical (eight) Branch hours as needed for Nausea and Vomiting (N/V). ondansetron 0 Yes [id number] 4mg Take 1 Univers (ZOFRAN) 4 2-09 tablet by ity of mg tablet 00:00: mouth [place] 00 every 8 Medical (eight) Branch hours as needed for Nausea and Vomiting (N/V). ondansetron 2020-0 Yes [id number] 4mg Take 1 Univers (ZOFRAN) 4 2-09 tablet by ity of mg tablet 00:00: mouth [place] 00 every 8 Medical (eight) Branch hours as needed for Nausea and Vomiting (N/V). ondansetron 0 Yes [id number] 4mg Take 1 Univers (ZOFRAN) 4 2-09 tablet by ity of mg tablet 00:00: mouth [place] 00 every 8 Medical (eight) Branch hours as needed for Nausea and Vomiting (N/V). Vital Signs Vital Name Observation Time Observation Value Comments Source Systolic blood 2022-12-21 18:04:00 142 mm[Hg] [facility] Diastolic blood 2022-12-21 18:04:00 92 mm[Hg] [facility] Heart rate 2022-12-21 18:04:00 77 /min [facility] [place] [facility] Body temperature 2022-12-21 18:04:00 37.22 [place] [facility] [place] [facility] Respiratory rate 2022-12-21 18:04:00 16 /min [facility] [place] [facility] Body height 2022-12-21 18:04:00 160 cm [facility] [place] [facility] Body weight 2022-12-21 18:04:00 79.379 kg [facility] [place] [facility] BMI 2022-12-21 18:04:00 31.00 kg/m2 [facility] [place] [facility] Oxygen saturation in 2022-12-21 18:04:00 98 /min [facility] of Arterial blood by [place] [facility] Pulse oximetry Branch Systolic blood 2022-04-02 08:17:00 120 mm[Hg] [facility]iver [facility]ity of pressure [place] [facility] Diastolic blood 2022-04-02 08:17:00 81 mm[Hg] Unive rsity of pressure [place] [facility] Heart rate 2022-04-02 08:17:00 96 /min [facility] [place] [facility] Body temperature 2022-04-02 08:17:00 37.28 Maura [facility] Respiratory rate 2022-04-02 08:17:00 18 /min [facility] Body height 2022-04-02 08:17:00 160 cm [facility] Body weight 2022-04-02 08:17:00 82.101 kg [facility] BMI 2022-04-02 08:17:00 32.06 kg/m2 [facility] Oxygen saturation in 2022-04-02 08:17:00 97 /min [facility] Arterial blood by [facility] eris Pulse oximetry Branch Systolic blood 2022-02-24 19:09:00 115 mm[Hg] [facility] Diastolic blood 2022-02-24 19:09:00 78 mm[Hg] [facility] Heart rate 2022-02-24 19:09:00 76 /min [facility] Body temperature 2022-02-24 19:09:00 36.83 Maura [facility] Body height 2022-02-24 19:09:00 160 cm [facility] Body weight 2022-02-24 19:09:00 82.283 kg [facility] BMI 2022-02-24 19:09:00 32.13 kg/m2 [facility] Oxygen saturation in 2022-02-24 19:09:00 95 /min [facility] Arterial blood by [facility] Pulse oximetry Branch Systolic blood 2022-02-05 06:35:00 128 mm[Hg] [facility] Diastolic blood 2022-02-05 06:35:00 78 mm[Hg] [facility] Heart rate 2022-02-05 06:35:00 72 /min [facility] Oxygen saturation in 2022-02-05 06:35:00 98 /min [facility] Arterial blood by [facility] Pulse oximetry Branch Body temperature 2022-02-05 02:52:00 37.11 Maura [facility] Respiratory rate 2022-02-05 02:52:00 16 /min [facility] Body height 2022-02-05 02:52:00 160 cm [facility] Body weight 2022-02-05 02:52:00 80.287 kg [facility] BMI 2022-02-05 02:52:00 31.35 kg/m2 [facility] [place] Weight Measured 2022-01-16 13:33:00 177.60 pounds Height Measured 2022-01-16 13:33:00 60.22 inches Body Temperature 2022-01-16 13:33:00 97.40 degrees Heart Rate 2022-01-16 13:33:00 89.00 /min Respiratory Rate 2022-01-16 13:33:00 19.00 /min BP Systolic 2022-01-16 13:33:00 130 mm[Hg] BP Diastolic 2022-01-16 13:33:00 77 mm[Hg] Procedures Procedure Date / Time Performing Clinician Source Performed RAPID STREP SCREEN FOR 2022-12-21 18:34:00 Nima Guallpa [facility] Branch CONSENT/REFUSAL FOR 2022-12-21 17:57:11 Doctor Unassigned, No Un [facility] DIAGNOSIS AND TREATMENT Name Medical Branch URINALYSIS 2022-04-02 10:07:00 William King [facility] POCT TEST 2022-04-02 10:07:00 William King [facility] RAPID INFLUENZA A/B 2022-04-02 09:12:00 William King [facility] COVID-19 (ID NOW RAPID 2022-04-02 09:12:00 William King [facility] TESTING) [facility] RHEUMATOID FACTOR 2022-02-24 20:09:00 Leticia Hall [facility] POCT TEST 2022-02-24 19:55:00 Leticia Hall [facility] FLU VACC ([phone]), 6 2022-02-24 19:31:03 Leticia Hall [facility] MO-62 YRS, .5ML, IM, Medical Bra nch QUAD (FLUCELVAX) ASSIGNMENT OF BENEFITS 2022-02-24 18:15:30 Doctor Unassigned, No [facility] CT ABDOMEN PELVIS W 2022-02-05 04:54:15 Smith Dennis [facility] CONTRAST [facility] CT THORAX W CONTRAST 2022-02-05 04:54:15 Smith Dennis [facility] XR SHOULDER 2+ VW LEFT 2022-02-05 04:53:46 Smith Dennis [facility] LIPASE 2022-02-05 04:02:00 Smith Dennis [facility] COMP. METABOLIC PANEL 2022-02-05 04:02:00 Smith Dennis [facility] ([id number]) [facility] CBC WITH DIFF 2022-02-05 04:02:00 Smith Dennis [facility] PROTHROMBIN TIME / INR 2022-02-05 04:02:00 [facility] ACTIVATED PARTIAL 2022-02-05 04:02:00 Smith Dennis [facility] THRMPLAS SCOOBY [facility] POCT TEST 2022-02-05 03:56:00 Smith Dennis [facility] URINALYSIS 2022-02-05 03:53:00 Smith Dennis [facility] CONSENT/REFUSAL FOR 2022-02-05 02:42:52 Doctor Unassigned, No Un [facility] DIAGNOSIS AND TREATMENT Name [facility] Plan of Care Planned Activity Planned Date Details Comments Source Goal Plan of Care Note [code = 44516-4] Goal Plan of Care Note [code = 30186-4] Encounters Start End Encounter Admission Attending Care Care Encounter Source Date/Time Date/Time Type Type Clinicians Facility Department ID 2021-02-10 Emergency [facility] [id number] Univers 17:24:10 ity [facility] 2021-02-09 Emergency [facility] [id number] Univers 22:37:34 ity [facility] 2021-02-08 Emergency [facility] [id number] [facility] 2022-12-21 Emergency [facility] ERT [id number] Univers 13:05:00 14:45:00 [facility]-12-21 2022-12-21 [facility] [id number] Univers 13:05:00 14:45:00 Nima KNUTSON 350.1.13.10 i ty of [place] 4.2.7.2.686 [facility] [id number] [address] 2022-12-11 2022-12-11 Outpatient LISA GONZALEZ [id number] Umesh 13:37:45 13:37:45 0831 F Alfa 2022-04-02 2022-04-02 Emergency [facility] [id number] Univers 02:18:00 04:44:00 WILLIAM elliott [facility] 2022-04-02 2022-04-02 Emergency [facility] [id number] Univers 02:18:00 04:44:00 William KNUTSON 350.1.13.10 i ty of [place] 4.2.7.2.686 [facility] [id number] [address] 2022-03-13 2022-03-13 Outpatient Sudhir DIEZ [facility] [id number] Univers 09:00:00 09:00:00 CHRISTIANA ity of [facility] 2022-03-12 2022-03-12 Telephone Tomasbernard [facility] [id number] Univers 00:00:00 00:00:00 Leticia HEALTH 350.1.13.10 it y of [place] 4.2.7.2.686 Casimiro as BLAYNE?BLEA [id number] Co amber RAMON [address] [place] MEDICAL OFFICE [facility] 2022-03-07 2022-03-07 Patient Doctor [facility] 1.2.840.114 [id number] Univers 00:00:00 00:00:00 Secure Msg Unassigned, HEALTH 350.1.13.10 ity of [place] 4.2.7.2.686 Casimiro as BLAYNE?BLEA [id number] Co amber RAMON 198 [facility] OFFICE [facility] 2022-03-05 2022-03-05 Telephone Isabel [facility] [id number] Univers 00:00:00 00:00:00 Leticia HEALTH 350.1.13.10 it y of [place] 4.2.7.2.686 Casimiro as BLAYNE?BLEA [id number] Co amber RAMON 044 [facility] OFFICE [facility] 2022-02-28 2022-02-28 Patient Isabel [facility] 1.2.840.114 [id number] Univers 00:00:00 00:00:00 Secure Msg Leticia HEALTH 350.1.13.10 ity of [place] 4.2.7.2.686 Casimiro as BLAYNE?BLEA [phone] Co amber RAMON [address] [place] [address] OFFICE [facility] 2022-02-27 2022-02-27 [facility]phone [facility] [id number] Univers 00:00:00 00:00:00 Leticia HEALTH 350.1.13.10 it y of [place] 4.2.7.2.686 Casimiro as BLAYNE?BLEA [phone] Co amber RAMON [address] [place] [address] OFFICE [facility] 2022-02-25 2022-02-25 Patient Isabel [facility] 1.2.840.114 [id number] Univers 00:00:00 00:00:00 Secure Msg Leticia HEALTH 350.1.13.10 ity of [place] 4.2.7.2.686 Casimiro as BLAYNE?BLEA [id number] [facility] [address] [place] MEDICAL OFFICE [facility] 2022-02-25 2022-02-25 Patient Doctor ART 1.2.840.114 [id number] Univers 00:00:00 00:00:00 Secure Msg Unassigned, ADILIA 350.1.13.10 ity of [place] [facility] 4.2.7.2.686 Casimiro as [phone] [facility] [address] [place] 2022-02-24 2022-02-24 Outpatient R ISABEL [facility] [id number] Univers 13:58:22 23:59:00 LETICIA elliott [facility] 2022-02-24 2022-02-24 Stunt Man Lab, Ang - Db [facility] 1.2.840.1 [id number] Univers 14:00:00 14:22:07 Visit Leticia Hall 350.1.13.10 ity of [place] 4.2.7.2.686 Casimiro as BLAYNE?BLEA [id number] [facility] 353 [facility] OFFICE [facility] 2022-02-24 2022-02-24 Office Isabel [facility] 1.2.840.114 [id number] Univers 13:00:00 13:30:00 Visit Leticia EASLEY 350.1.13.10 [facility] 4.2.7.2.686 Casimiro as BLAYNE?BLEA [phone] [facility] [address] [place] MEDICAL OFFICE [facility] 2022-02-24 2022-02-24 Orders Doctor ART 1.2.840.114 [id number] Univers 00:00:00 00:00:00 Only Unassigned, ADILIA 350.1.13.10 ity of [place] [facility] 4.2.7.2.686 Casimiro as [phone] [facility] 00[address] [place] 2022-02-10 2022-02-10 Outpatient R ISABEL [facility] [id number] Univers 13:00:00 13:00:00 LETICIA elliott [facility] 2022-02-04 2022-02-05 Emergency Dennis [facility] 1.2.629.230 [id number] Univers 21:48:00 01:59:00 Smith BAKER 350.1.13.10 i ty [facility] 4.2.7.2.686 [place] [facility] [id number] [address] 2022-02-04 2022-02-05 Emergency X [facility] [id number] Univers 21:48:00 01:59:[facility] 2022-01-16 2022-01-16 Outpatient [facility] [id number] Umesh 13:33:14 13:33:14 [address] [place] 2022-01-16 2022-01-16 Outpatient [id number] 00:00:00 00:00:00 Visit fbed-4fad [facility]-4fad-9 -[id number] 2021-06-12 2021-06-12 Elisa Eckert [facility] 1.2.840.114 [id number] Univers 00:00:00 00:00:00 Management M GREY ROLL MAN 350.1.13.10 ity [facility] 4.2.7.2.686 Casimiro as MATERNAL [phone] Med ical & CHILD [address] [place] [address] 2019-08-20 2019-08-21 Emergency [facility] ERT [id number] Univers 22:25:07 01:11:00 [facility] Results Test Description Test Time Test Comments Results Result Comments Source POCT TEST 2022-04-02 10:07:00 Test Item Value Reference Range Interpretation Comme nts POCT PREG (test code = 1605) negative On board controls acceptable with C Line (test code = 3574) present POCT PREG LOT # (test code = 3575) [id number] POCT PREG TEST DATE (test code = 3576) 07/12/2023 Lab Interpretation (test code = 75423-7) Normal [facility] [id number] 17:41:26 Test Item Value Reference Range Interpretation Comments RF (test code = See_Comment [Automated message] [id number]) The system whic h generated this result transmitted ref erence range: <20 IU/m L. The reference range was not used to int erpret this result as normal/abnormal . Lab Interpretation (test Normal code = 05185-6) [facility] [id number] 19:55:00 Test Item Value Reference Range Interpretation Comments POCT PREG (test code = 1605) Negative On board controls acceptable with C Yes Line (test code = 3574) POCT PREG LOT # (test code = 3575) POCT PREG TEST DATE (test code = 3576) Lab Interpretation (test code = Normal 39037-6) [facility] [id number] 19:55:00 Test Item Value Reference Range Interpretation Comments POCT PREG (test code = 1605) Negative On board controls acceptable with C Yes Line (test code = 3574) POCT PREG LOT # (test code = 3575) POCT PREG TEST DATE (test code = 3576) Lab Interpretation (test code = Normal 41869-4) [facility] [id number] 04:45:54 Test Item Value Reference Range Interpretation Comments APTT Patient (test See_Comment [Automat ed code = 3173-2) message] The system which generated this result transmitted reference range : 23 - 38 Seconds . The reference range was not used to interpr et this result as normal/abnormal . SOLOMON (test code = SOLOMON) The [facility] patient population mean normal value for aPTT is 30 seconds. Lab Interpretation Normal (test code = 04321-5) [facility] [id number] 04:43:34 Test Item Value Reference Range Interpretation Comments WBC (test code = See_Comment [Automated 0590-2) message] The sy stem which generated this result transmitted reference range : 4.30 - 11.10 10*3/?L. The reference range was not used to interpret this result as normal/abnormal . RBC (test code = See_Comment [Automated 258-8) message] The sy stem which generated this result transmitted reference range : 3.93 - 5.25 10*6/?L. The reference range was not used to interpret this result as normal/abnormal . HGB (test code = 13.4 g/dL 11.6-15.0 718-7) HCT (test code = 39.6 % 35.7-45.2 4544-3) MCV (test code = 88.0 fL 80.6-95.5 787-2) MCH (test code = 29.8 pg 25.9-32.8 785-6) MCHC (test code = 33.8 g/dL 31.6-35.1 786-4) RDW-SD (test code = 40.0 fL 39.0-49.9 18510-5) RDW-CV (test code = 12.4 % 12.0-15.5 788-0) PLT (test code = See_Comment L [Automated 777-3) message] The sy stem which generated this result transmitted reference range : 166 - 358 10*3/ ?L. The reference r berenice was not used to interpret this result as normal/abnormal . MPV (test code = 13.5 fL 9.5-12.9 H 19478-4) IPF % (test code = 20.9 % 1.3-7.7 H Platelet count [id number]) measured by fluorescence method. NRBC/100 WBC (test See_Comment [Automat ed code = 3279183223) message] The system which generated this result transmitted reference range : 0.0 - 10.0 /100 WBCs. The refer ence range was not u sed to interpret th is result as normal/abnormal . NRBC x10^3 (test code See_Comment [Auto mated = 9337252474) message] The s ystem which generated this result transmitted reference range : 10*3/?L. The reference range was not used to interpret this result as normal/abnormal . GRAN MAT (NEUT) % 56.4 % (test code = 770-8) IMM GRAN % (test code 0.30 % = 4525072626) LYMPH % (test code = 36.4 % 736-9) MONO % (test code = 5.4 % 5905-5) EOS % (test code = 1.1 % 713-8) BASO % (test code = 0.4 % 706-2) GRAN MAT x10^3(ANC) 5.73 10*3/uL 1.88-7.09 (test code = 7933088374) IMM GRAN x10^3 (test 0.03 10*3/uL 0.00-0.06 code = 1585714956) LYMPH x10^3 (test code 3.69 10*3/uL 1.32-3.29 H = 731-0) MONO x10^3 (test code 0.55 10*3/uL 0.33-0.92 = 742-7) EOS x10^3 (test code = 0.11 10*3/uL 0.03-0.39 711-2) BASO x10^3 (test code 0.04 10*3/uL 0.01-0.07 = 704-7) Lab Interpretation Abnormal (test code = 68412-8) [facility] / [id number] 04:43:14 Test Item Value Reference Range Interpretation Comments PROTIME PATIENT (test See_Comment [Auto mated message] code = 5964-2) The system [employer] ich generated this result transmitted ref erence range: 12.0 - 1 4.7 Seconds. The re ference range was not u sed to interpret this result as normal/abnor mal. INR (test code = 6301-6) Nor mal INR <1.1; Warfarin Therap eutic range 2.0 to 3. 0 or 2.5 to 3.5, dep ending upon the indica tions. Lab Interpretation (test Normal code = 19398-7) [facility] ([id number])2022-02-05 04:36:15 Test Item Value Reference Range Interpretation Comments NA (test code = 142 mmol/L 135-145 0466524449) K (test code = 3.8 mmol/L 3.5-5.0 5477020883) CL (test code = 106 mmol/L 98-108 3707768782) CO2 TOTAL (test code 28 mmol/L 23-31 = 1349127601) AGAP (test code = 2-16 1336854323) BUN (test code = 13 mg/dL 7-23 3396867355) GLUCOSE (test code = 93 mg/dL 70-110 1577956575) CREATININE (test code 0.83 mg/dL 0.50-1.04 = 0625386458) TOTAL BILI (test code 0.3 mg/dL 0.1-1.1 = 3347855922) CALCIUM (test code = 8.8 mg/dL 8.6-10.6 7107085999) T PROTEIN (test code 7.3 g/dL 6.3-8.2 = 6126464517) ALBUMIN (test code = 4.7 g/dL 3.5-5.0 3384053044) ALK PHOS (test code = 65 U/L 34-122 5147614984) ALTv (test code = 24 U/L 5-35 1742-6) AST(SGOT) (test code 21 U/L 13-40 = 0392226562) eGFR (test code = mL/min/1.73m2 8211798454) SOLOMON (test code = SOLOMON) Association of Glomerular Filtration Rate (GFR) and Staging of Kidney Disease* + + +- +| GFR (mL/min/1.73 m2) ?| With Kidney Damage ?| ?Without Kidney Damage+ ------+ ----+ ------+| ?>90 ?| ?Stage one ?| ? Normal ?+ -+ + -+| ?60-89 ?| ?Stage two ?| ? Decreased GFR ? + + +- +| ?30-59 ?| ?Stage three ?| ? Stage three ? + + +- +| ?15-29 ?| ?Stage four ? | ? Stage four ?+ -+ + -+| ?<15 (or dialysis) ? ?| ?Stage five ? | ? Stage five ?+ -+ + -+ *Each stage assumes the associated GFR level has been in effect for at least three months. ?Stages 1 to 5, with or without kidney disease, indicate chronic kidney disease. Notes: Determination of stages one and two (with eGFR >59mL/min/1.73 m2) requires estimation of kidney damage for at least three months as defined by structural or functional abnormalities of the kidney, manifested by either:Pathological abnormalities or Markers of kidney damage (including abnormalities in the composition of the blood or urine or abnormalities in imaging tests). [facility] 04:36:14 Test Item Value Reference Range Interpretation Comments LIPASE (test code = 3600550400) 106 U/L 0-220 Lab Interpretation (test code = Normal 53594-8) [facility] [id number] 03:56:00 Test Item Value Reference Range Interpretation Comments POCT PREG (test code = 1605) negative On board controls acceptable with present C Line (test code = 3574) POCT PREG LOT # (test code = 3575) [id number] POCT PREG TEST DATE (test 06/11/2023 code = 3576) Lab Interpretation (test code = Normal 26191-8) [facility]"
[2023-02-04 18:19] LABS: Absolute Lymphocytes (CBC) 3.4 K/uL (0.7-4.9); Hematocrit 41.7 % (36.0-45.0); Lymphocytes % 31.9 % (15.3-44.8); MPV 10.5 fL (7.6-11.3); Platelets 103 thou/uL (152-406); RBC Red Blood Cell Count 4.85 M/uL (3.86-4.86)
[2023-02-04 18:21] LABS: Specific Gravity 1.021 (1.005-1.030); Urine Bacteria <20 /HPF (<20); Urine Bilirubin NEGATIVE (Negative); Urine Blood Negative (Negative); Urine Clarity Turbid (Clear); Urine Color Light-Yellow (Yellow); Urine Glucose NEGATIVE (Negative); Urine Mucus Slight /HPF (None Seen); Urine Protein NEGATIVE (Negative); Urine RBC <5 /HPF (None Seen); Urine Urobilinogen Normal (Normal)
[2023-02-04] MEDS ORDERED: KETOROLAC 30 MG/ML INJ ONE (18:34)
[2023-02-04] MEDS ORDERED: NA CHLORIDE 0.9% 1,000 ML ONE (18:34)
[2023-02-04] MEDS ORDERED: ONDANSETRON 4 MG/2 ML VIAL ONE (18:34)
[2023-02-04 18:39] LABS: Albumin 3.9 g/dL (3.4-5.0); Bilirubin Total 0.2 mg/dL (0.2-1.0); Protein, Total 8.6 g/dL (6.4-8.2)
[2023-02-04 19:12] LABS: Potassium 3.9 mEq/L (3.5-5.1)
--- NOTE | 2023-02-04 20:06 | RAD REPORT ---
EXAM DESCRIPTION: CTAbdomen Pelvis W Contrast - 02/04/2023 7:38 pm CLINICAL HISTORY: Abdominal pain. ABD PAIN COMPARISON: Abdomen Pelvis W Contrast dated 01/24/2023 TECHNIQUE: Biphasic CT imaging of the abdomen and pelvis was performed with 100 ml non-ionic IV cont rast. All CT scans are performed using dose optimization technique as appropriate and may include automated exposure control or mA/KV adjustment according to patient size. FINDINGS: The lung bases are clear. The liver demonstrates diffuse fatty infiltration. The spleen, pancreas, adrenal glands and left kidn ey are within normal limits. 4 mm stone is present inferior right kidney without hydronephrosis. No bowel obstruction, free air, free fluid or abscess. Small fat containing umbilical hernia. The harish endix is normal. A few small lymph nodes are present in the left upper quadrant, small bowel mesente ry, right lower quadrant and in the anterior omentum. Moderate stool is retained throughout the colon . No suspicious bony findings. IMPRESSION: Mild intraabdominal lymphadenopathy seen of indeterminate etiology. Follow-up CT imaging in 6 months may be beneficial for monitoring purposes. Prominent diffuse fatty liver. 4 mm stone right kidney without hydronephrosis.
--- NOTE | 2023-02-04 20:28 | ER ---
Nurse's Notes [facility] Name: Batsheva Bartlett Age: 32 yrs Sex: Female : 1990 Arrival Date: 02/04/2023 Time: 17:35 Bed 16 Private MD: Diagnosis: Lower abdominal pain, unspecified Presentation: 02/04 17:40 Chief complaint: Patient states: R sided abd pain for 3 days. No fever. Coronavirus ll1 screen: Vaccine status: Patient reports receiving the 2nd dose of the covid vaccine. Client denies travel out of the [place] in the last 14 days. At this time, the client does not indicate any symptoms associated with coronavirus-19. Ebola Screen: Patient denies travel to an Ebola-affected area in the 21 days before illness onset. Initial Sepsis Screen: Does the patient meet any 2 criteria? No. Patient's initial sepsis screen is negative. Does the patient have a suspected source of infection? Yes: Acute abdominal pain. Risk Assessment: Do you want to hurt yourself or someone else? Patient reports no desire to harm self or others. Onset of symptoms was February 02, 2023. 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 - Social history:: Smoking status: Patient denies any tobacco usage or history of. Screenin:00 [facility] ED Fall Risk Assessment (Adult) Score/Fall Risk Level 0 - 2 = Low Risk nj1 Oriented to surroundings, Maintained a safe environment, Hourly rounding (assess needs \T\ fall precautionary measures) done. Abuse screen: Denies threats or abuse. Denies injuries from another. Nutritional screening: No deficits noted. Tuberculosis screening: No symptoms or risk factors identified. Assessment: 18:00 General: Appears in no apparent distress. comfortable, Behavior is calm, cooperative, nj1 appropriate for age. Pain: Complains of pain in right lower quadrant Pain currently is 10 out of 10 on a pain scale. Pain began 2-3 days ago. Neuro: Level of Consciousness is awake, alert, obeys commands, Oriented to person, place, time, situation. 18:00 Cardiovascular: Patient's skin is warm and dry. Respiratory: Airway is patent nj1 Respiratory effort is even, unlabored. GI: Reports upper abdominal pain. : Reports Dysuria. 19:37 Reassessment: Patient appears in no apparent distress at this time. No changes from [facility] previously documented assessment. Patient and/or family updated on plan of care and expected duration. Pain level reassessed. Patient is alert, oriented x 3, equal unlabored respirations, skin warm/dry/pink. 20:25 Reassessment: Patient appears in no apparent distress at this time. Patient and/or jw7 family updated on plan of care and expected duration. Pain level reassessed. Patient is alert, oriented x 3, equal unlabored respirations, skin warm/dry/pink. Patient states feeling better. Vital Signs: 17:46 BP 142 / 82; Pulse 87; Resp 17; Temp 97.3; Pulse Ox 98% ; Weight 83.91 kg; Height 5 ft. ll1 2 in. ; Pain 10/10; 18:30 BP 154 / 92; Pulse 72; Resp 16; Pulse Ox 99% ; Pain 10/10; nj1 19:30 BP 129 / 77; Pulse 70; Resp 17 S; Pulse Ox 96% on R/A; jw7 20:25 BP 121 / 81; Pulse 95; Resp 16 S; Pulse Ox 98% on R/A; jw7 17:46 Body Mass Index 33.84 (83.91 kg, 157.48 cm) ll1 17:46 Pain Scale: Adult 1 18:30 Pain Scale: Adult [facility] ED Course: 17:37 Patient arrived in ED. ts1 17:37 [facility]-C [facility] kb 17:37 Mundo Smart MD is Attending Physician. kb 17:41 Triage completed. ll1 17:41 Arm band placed on Patient placed in an exam room, on a stretcher. ll1 17:48 Ashly Trejo, LEONORA is Primary Nurse. nj1 18:05 Inserted saline lock: 20 gauge in left wrist, using aseptic technique. Blood collected. nj1 18:15 Provided Education on: call light, fall precautions. nj1 18:16 Patient has correct armband on for positive identification. Bed in low position. Call nj1 light in reach. 19:16 Report given to Jenny LEA. nj1 19:40 CT Abd/Pelvis - IV Contrast Only In Process Unspecified. EDMS 20:25 Door closed. Noise minimized. Warm blanket given. jw7 20:51 No provider procedures requiring assistance completed. IV discontinued, intact, jw7 bleeding controlled, No redness/swelling at site. Pressure dressing applied. Administered Medications: 18:30 Drug: NS 0.9% IV 1000 ml IV at 1 bolus Per protocol; 1000 mL bolus Route: IV; Rate: 1 nj1 bolus; Site: left wrist; 20:52 Follow up: Response: No adverse reaction; IV Status: Completed infusion; IV Intake: jw7 1000ml 18:30 Drug: TORadol - Ketorolac IVP 15 mg IVP once Route: IVP; Site: left wrist; nj1 18:58 Follow up: Response: No adverse reaction; Pain is decreased nj1 18:30 Drug: Ondansetron IVP 4 mg IVP once; over 2 minutes Route: IVP; Site: left wrist; nj1 18:58 Follow up: Response: No adverse reaction nj1 Medication: 20:51 VIS not applicable for this client. jw7 Intake: 20:52 IV: 1000ml; Total: 1000ml. jw7 Outcome: 20:27 Discharge ordered by . edel 20:51 Discharged to home ambulatory, jw7 20:51 Condition: stable 20:51 Discharge instructions given to patient, Instructed on discharge instructions, follow up and referral plans. Demonstrated understanding of instructions, follow-up care, 20:52 Patient left the ED. jw7 Signatures: Dispatcher [employer] EDMS Claudia Mane, SUPERVISOR OF OFFICIALS-C SUPERVISOR OF OFFICIALS-CkAntwon Pereyra, RN RN ll1 Jenny Gracia RN RN jw7 Ashly Trejo RN RN nj1 Hafsa Valadez PAS PAS ts1
--- NOTE | 2023-02-04 20:28 | EDPHYS ---
Physician Documentation [facility] Name: Batsheva Bartlett Age: 32 yrs Sex: Female : 1990 Arrival Date: 02/04/2023 Time: 17:35 Bed 16 Private MD: ED Physician Mundo Smart HPI: 02/04 17:50 This 32 yrs old Female presents to ER via Wheelchair with complaints of kb Abdominal Pain. 17:50 The patient presents with abdominal pain right lower quadrant. Onset: The kb symptoms/episode began/occurred 3 day(s) ago. The symptoms do not radiate. Associated signs and symptoms: none. The symptoms are described as constant. Modifying factors: The symptoms are alleviated by nothing, the symptoms are aggravated by movement, pressure. Severity of pain: At its worst the pain was moderate in the emergency department the pain is unchanged. The patient has not experienced similar symptoms in the past. The patient has not recently seen a physician. 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 - Social history:: Smoking status: Patient denies any tobacco usage or history of. ROS: 17:50 Constitutional: Negative for fever, chills, and weight loss, kb 17:50 Abdomen/GI: Positive for abdominal pain, Negative for nausea, vomiting, and diarrhea, 17:50 All other systems are negative, Exam: 17:50 Constitutional: This is a well developed, well nourished patient who is awake, alert, kb and in no acute distress. Head/Face: Normocephalic, atraumatic. ENT: Moist Mucous membranes Cardiovascular: Regular rate Respiratory: Respirations even and unlabored. No increased work of breathing. Talking in full sentences Skin: Warm, dry with normal turgor. Normal color. MS/ Extremity: Pulses equal, no cyanosis. Neurovascular intact. Full, normal range of motion. Neuro: Awake and alert, GCS 15, oriented to person, place, time, and situation. Moves all extremities. Normal gait. 17:50 Abdomen/GI: Inspection: abdomen appears normal, Bowel sounds: normal, Palpation: soft, in all quadrants, mild abdominal tenderness, in the right upper quadrant and right lower quadrant, 19:23 ECG was reviewed by the Attending Physician. kb Vital Signs: 17:46 BP 142 / 82; Pulse 87; Resp 17; Temp 97.3; Pulse Ox 98% ; Weight 83.91 kg; Height 5 ft. ll1 2 in. ; Pain 10/10; 18:30 BP 154 / 92; Pulse 72; Resp 16; Pulse Ox 99% ; Pain 10/10; nj1 19:30 BP 129 / 77; Pulse 70; Resp 17 S; Pulse Ox 96% on R/A; jw7 20:25 BP 121 / 81; Pulse 95; Resp 16 S; Pulse Ox 98% on R/A; jw7 17:46 Body Mass Index 33.84 (83.91 kg, 157.48 cm) ll1 17:46 Pain Scale: Adult ll1 18:30 Pain Scale: Adult nj1 MDM: 17:38 Patient medically screened. kb 17:51 Differential diagnosis: appendicitis, cholecystitis, Cholelithiasis, diverticulitis, kb non-specific abd pain, urinary tract infection, ovarian cyst. Data reviewed: vital signs, nurses notes. 20:21 Counseling: I had a detailed discussion with the patient and/or guardian regarding the kb historical points, exam findings, and any diagnostic results supporting the discharge/admit diagnosis, lab results, radiology results, the need for outpatient follow up, a family practitioner, to return to the emergency department if symptoms worsen or persist or if there are any questions or concerns that arise at home. 02/04 17:43 Order name: CBC with Diff; Complete Time: 18:24 kb 02/04 17:43 Order name: CMP; Complete Time: 19:20 kb 02/04 17:43 Order name: Lipase; Complete Time: 19:20 kb 02/04 17:43 Order name: Test, Urine; Complete Time: 18:24 kb 02/04 17:43 Order name: Urinalysis w/ reflexes; Complete Time: 18:24 kb 02/04 18:11 Order name: Troponin High Sensitivity; Complete Time: 19:20 kb 02/04 17:43 Order name: CT Abd/Pelvis - IV Contrast Only; Complete Time: 20:20 kb 02/04 18:11 Order name: EKG; Complete Time: 18:11 kb 02/04 17:43 Order name: IV Saline Lock; Complete Time: 18:12 kb 02/04 17:43 Order name: Labs collected and sent; Complete Time: 18:12 kb 02/04 18:11 Order name: EKG - Nurse/Tech; Complete Time: 18:58 kb EC:23 Rate is 69 beats/min. Rhythm is regular. QRS [place] is Normal. [place] interval is normal at kb 170 msec. QRS interval is normal at 70 msec. QT interval is normal at 413 msec. Administered Medications: 18:30 Drug: NS 0.9% IV 1000 ml IV at 1 bolus Per protocol; 1000 mL bolus Route: IV; Rate: 1 nj1 bolus; Site: left wrist; 20:52 Follow up: Response: No adverse reaction; IV Status: Completed infusion; IV Intake: jw7 1000ml 18:30 Drug: TORadol - Ketorolac IVP 15 mg IVP once Route: IVP; Site: left wrist; nj1 18:58 Follow up: Response: No adverse reaction; Pain is decreased nj1 18:30 Drug: Ondansetron IVP 4 mg IVP once; over 2 minutes Route: IVP; Site: left wrist; nj1 18:58 Follow up: Response: No adverse reaction nj1 Disposition Summary: 02/04/23 20:27 Discharge Ordered Notes: Location: Home kb Condition: Stable kb Diagnosis - Lower abdominal pain, unspecified kb Followup: kb - With: Emergency Department - When: As needed - Reason: Worsening of condition Followup: kb - With: Private Physician - When: 2 - 3 days - Reason: Recheck today's complaints, Continuance of care, Re-evaluation by your physician Discharge Instructions: - Discharge Summary Sheet kb - Abdominal Pain, Adult, [id number] kb Forms: - Medication Reconciliation Form kb - Thank You Letter kb - Antibiotic Education kb - Prescription Opioid Use kb - Patient Portal Instructions kb - Leadership Thank You Letter kb Signatures: Dispatcher [employer] Claudia Olivo FNP-C FNP-Antwon Hood, RN RN ll1 Ashly Trejo RN RN nj1 Jenny Gracia RN jw7
--- NOTE | 2023-02-05 07:58 | EKG ---
Test Date: 2023-02-04 Test Time: 18:55:11 Cena: BERNICE MEASUREMENT RESULTS: Intervals: Rate: 69 WV: 170 QRSD: 70 QT: 386 QTc: 413 Waterman: P: 62 WV: 170 QRS: 77 T: 28 INTERPRETIVE STATEMENTS: Normal sinus rhythm Normal ECG No previous ECG available for comparison Electronically Signed On 02-05-23 07:57:03 CDT by Jose Sexton
[2023-02-05 16:09] VITALS: BP 121/81; TEMP 97.3; O2SAT 98
== END 2023-02-04 20:52 | disposition home or self-care (01) ==
LOC: ER 17:35
DX: R10.31 Right lower quadrant pain (principal)
CPT/HCPCS: 36415; 74177; 80053; 81001; 81025; 83690; 84484; 85025; 93005; J2405; J7030; Q9967

== ENCOUNTER 2023-02-13 18:19 | Emergency (ER) | payer SELFPAY ==
--- OUTSIDE RECORDS SUMMARY | 2023-02-13 18:22 | XMS REPORT | Continuity of Care Document ---
:1990 Author Organization [facility] t Address [address] [place] [address] [address] [place] [address] Care Team Providers Name Role Phone Latha Lynn Primary Care Physician [phone] NIMA GUALLPA Attending Clinician Unavailable Nima Guallpa MD Attending Clinician HUGH WIN Attending Clinician Unavailable WILLIAM KING Attending Clinician Unavailable William King MD Attending Clinician LESLIE SAUCEDA Attending Clinician Unavailable LESLIE SAUCEDA Attending Clinician Unavailable CHRISTIANA DIEZ Attending Clinician Unavailable Leticia Corona Attending Clinician Doctor Unassigned, [place] Attending Clinician Unavailable LETICIA HALL Attending Clinician Unavailable Lab, Ang - Db Attending Clinician Unavailable Smith Dennis MD Attending Clinician SMITH DENNIS Attending Clinician Unavailable Elisa Banks LMSW Attending Clinician Unavailable SMITH DENNIS Admitting Clinician Unavailable Payers Payer Name Policy Type Policy Number Effective Date Expiration Date [place] [employer] BLUE [id number] 2022 ADVANTAGE HMO 00:00:00 Problems Condition Condition [...] rupture [place] [address] [place] [address] Thrombocyt Thrombocyt Disease Active Overview : Univers StartMe openia 07-13 Formattin ity of 00:00: g of this [place] note Medical might be Branch different from the original. ICD10 Diagnosis Term Banquet Stewardess Utility Thrombocyt Thrombocyt Disease Active Overview : Univers openia openia 402 Formattin ity of 00:00: g of this [place] note Medical might be Branch different from the original. ICD10 Diagnosis Term Banquet Stewardess Utility Breast Breast Disease Active 2012-04 Univers tenderness tenderness 04-13 it y of in female [facility] Allergies, Adverse Reactions, Alerts Allergy Allergy Status Severity Reaction(s) Onset Inactive Treating Comm ents Source Name Type Date Date Clinician NO KNOWN Drug Active Univers ALLERGIE Class ity of [facility] Social History Social Habit Start Date Stop Date Quantity Comments Source Gender identity Universit y of [facility] Alcohol intake 2022-12-21 2022-12-21 Current University of 00:00:00 00:00:00 non-drinker of [facility] alcohol Branch (finding) Exposure to 2022-03-23 2022-04-02 Not sure University of SARS-CoV-2 (event) 00:00:00 02:34:00 [facility] History of Social 2022-02-24 2022-02-24 Univers ity of function 00:00:00 00:00:00 [facility] Education 2019-01-27 2019-01-27 9 University 00:00:00 00:00:00 [facility] Tobacco use and 2013-02-11 2013-02-11 Smokeless Universit y of exposure 00:00:00 00:00:00 tobacco non-user [facility] Sex Ass[birth year] At [birth year] Universit y of 00:00:00 00:00:00 [facility] Smoking Status Start Date Stop Date Source Never smoked tobacco [facility] Medications Ordered Filled Start Stop Current [...] 04/02/22 at 0315, SHITAL ondansetron 2021-04 Yes [id number] 4mg Take 1 Univers 4 mg 2-21 tablet by ity of disintegrat 00:00: mouth [place] ing tablet 00 every 8 Medica l (eight) Branch hours as needed for Nausea and Vomiting (N/V). ibuprofen 2021-04 Yes [id number] 600mg Take 1 U nivers 600 mg 2-21 tablet by ity of tablet 00:00: mouth [place] 00 every 8 Medical (eight) Branch hours as needed for Pain (scale 4-6) or Temp > 38.5 C. ondansetron 2021-04 Yes [id number] 4mg Take 1 Univers 4 mg 2-21 tablet by ity of disintegrat 00:00: mouth [place] ing tablet 00 every 8 Medica l (eight) Branch hours as needed for Nausea and Vomiting (N/V). ibuprofen 2021-04 Yes [id number] 600mg Take 1 U nivers 600 mg 2-21 tablet by ity of tablet 00:00: mouth [place] 00 every 8 Medical (eight) Branch hours as needed for Pain (scale 4-6) or Temp > 38.5 C. cefdinir 2021-04- [id number] 300mg Take 1 Univers 300 mg 2-21 -29 capsule by ity of capsule 00:00: 05:59 mouth in [place] 00 :00 the Medical morning Branch and 1 capsule in the evening. Do all this for 7 days. cyclobenzap 2021-04 Yes [id number] 5mg Take 1 Univers rine 5 mg 1-14 [id number] tablet by ity of tablet 00:00: mouth in [place] 00 the Medical morning Branch and 1 tablet at noon and 1 tablet in the evening. cyclobenzap 2021-04 Yes [id number] 5mg Take 1 Univers rine 5 mg 1-14 [id number] tablet by ity of tablet 00:00: mouth in [place] [address] [facility] morning [place] and 1 tablet at noon and 1 tablet in the evening. cyclobenzap 2021-04 Yes [id number] 5mg Take 1 Univers rine 5 mg 1-14 [id number] tablet by ity of tablet 00:00: mouth in [place] [address] [facility] morning [place] and 1 tablet at noon and 1 tablet in the evening. cyclobenzap 2021-04 Yes [id number] 5mg Take 1 Univers rine 5 mg 1-14 [id number] tablet by ity of tablet 00:00: mouth in [place] [address] [facility] morning [place] and 1 tablet at noon and 1 tablet in the evening. cyclobenzap 2021-04 Yes [id number] 5mg Take 1 Univers rine 5 mg 1-14 [id number] tablet by ity of tablet 00:00: mouth in [place] [address] [facility] morning [place] and 1 tablet at noon and 1 tablet in the evening. cyclobenzap 2021-04 Yes [id number] 5mg Take 1 Univers rine 5 mg 1-14 [id number] tablet by ity of tablet 00:00: mouth in [place] [address] the [facility] morning [place] and 1 tablet at noon and 1 tablet in the evening. cyclobenzap 2021-04 Yes [id number] 5mg Take 1 Univers rine 5 mg 1-14 [id number] tablet by ity of tablet 00:00: mouth in [address] morning [place] and 1 tablet at noon and 1 tablet in the evening. cyclobenzap 2022-1 Yes [id number] 5mg Take 1 Univers rine 5 mg 1-14 [id number] tablet by ity of tablet 00:00: mouth in [place] 00 the Medical morning Branch and 1 tablet at noon and 1 tablet in the evening. cyclobenzap 2021-04 Yes [id number] 5mg Take 1 Univers rine 5 mg 1-14 [id number] tablet by ity of tablet 00:00: mouth in [place] 00 the Medical morning Branch and 1 tablet at noon and 1 tablet in the evening. cyclobenzap 2021-04 Yes [id number] 5mg Take 1 Univers rine 5 mg 1-14 [id number] tablet by ity of tablet 00:00: mouth in [place] 00 the Medical morning Branch and 1 tablet at noon and 1 tablet in the evening. cyclobenzap 2021-04 Yes [id number] 5mg Take 1 Univers rine 5 mg 1-14 [id number] tablet by ity of tablet 00:00: mouth in [place] 00 the Medical morning Branch and 1 tablet at noon and 1 tablet in the evening. cyclobenzap 2021-04 Yes [id number] 5mg Take 1 Univers rine 5 mg 1-14 [id number] tablet by ity of tablet 00:00: mouth in [place] 00 the Medical morning Branch and 1 tablet at noon and 1 tablet in the evening. cyclobenzap 2021-04 Yes [id number] 5mg Take 1 Univers rine 5 mg 1-14 [id number] tablet by ity of tablet 00:00: mouth in [place] 00 the Medical morning Branch and 1 tablet at noon and 1 tablet in the evening. cyclobenzap 2021-04 Yes [id number] 5mg Take 1 Univers rine 5 mg 1-14 [id number] tablet by ity of tablet 00:00: mouth in [place] 00 the Medical morning Branch and 1 tablet at noon and 1 tablet in the evening. cyclobenzap 2021-04 Yes [id number] 5mg Take 1 Univers rine 5 mg 1-14 [id number] tablet by ity of tablet 00:00: mouth in [place] 00 the Medical morning Branch and 1 tablet at noon and 1 tablet in the evening. cyclobenzap 2021-04 Yes [id number] 5mg Take 1 Univers rine 5 mg 1-14 [id number] tablet by ity of tablet 00:00: mouth in [place] 00 the Medical morning Branch and 1 tablet at noon and 1 tablet in the evening. iopamidol 2021-04- No [id number] 100mL 100 mL, Univers (ISOVUE 0-26 - [...] 02/04/22 at 2330, SHITAL ondansetron 2021-04 Yes [id number] 4mg Take 1 Univers 4 mg 0-26 tablet by ity of disintegrat 00:00: mouth [place] ing tablet 00 every 4 Medica l (four) Branch hours as needed for Nausea and Vomiting (N/V). dicyclomine 2021-04 Yes [id number] 20mg Take 1 Univers 20 mg 0-26 tablet by ity of tablet 00:00: mouth 4 [place] 00 (four) Medical times Branch daily. ondansetron 2021-04 Yes [id number] 4mg Take 1 Univers 4 mg 0-26 tablet by ity of disintegrat 00:00: mouth [place] ing tablet 00 every 4 Medica l (four) Branch hours as needed for Nausea and Vomiting (N/V). dicyclomine 2021-04 Yes [id number] 20mg Take 1 Univers 20 mg 0-26 tablet by ity of tablet 00:00: mouth 4 [place] 00 (four) Medical times Branch daily. ondansetron 2021-04 Yes [id number] 4mg Take 1 Univers 4 mg 0-26 tablet by ity of disintegrat 00:00: mouth [place] ing tablet 00 every 4 Medica l (four) Branch hours as needed for Nausea and Vomiting (N/V). dicyclomine 2021-04 Yes [id number] 20mg Take 1 Univers 20 mg 0-26 tablet by ity of tablet 00:00: mouth 4 [place] (four) Medical times Branch daily. ondansetron 2021-04 Yes [id number] 4mg Take 1 Univers 4 mg 0-26 tablet by ity of disintegrat 00:00: mouth [place] ing tablet 00 every 4 Medica l (four) Branch hours as needed for Nausea and Vomiting (N/V). dicyclomine 2021-04 Yes [id number] 20mg Take 1 Univers 20 mg 0-26 tablet by ity of tablet 00:00: mouth 4 [place] (four) Medical times Branch daily. ondansetron 2021-04 Yes [id number] 4mg Take 1 Univers 4 mg 0-26 tablet by ity of disintegrat 00:00: mouth [place] ing tablet 00 every 4 Medica l (four) Branch hours as needed for Nausea and Vomiting (N/V). dicyclomine 2021-04 Yes [id number] 20mg Take 1 Univers 20 mg 0-26 tablet by ity of tablet 00:00: mouth (four) Medical times Branch daily. ondansetron 2021-04 Yes [id number] 4mg Take 1 Univers 4 mg 0-26 tablet by ity of disintegrat 00:00: mouth [place] ing tablet 00 every 4 Medica l (four) Branch hours as needed for Nausea and Vomiting (N/V). dicyclomine 2021-04 Yes [id number] 20mg Take 1 Univers 20 mg 0-26 tablet by ity of tablet 00:00: mouth (four) Medical times Branch daily. ondansetron 2021-04 Yes [id number] 4mg Take 1 Univers 4 mg 0-26 tablet by ity of disintegrat 00:00: mouth [place] ing tablet 00 every 4 Medica l (four) Branch hours as needed for Nausea and Vomiting (N/V). dicyclomine 2021-04 Yes [id number] 20mg Take 1 Univers 20 mg 0-26 tablet by ity of tablet 00:00: mouth 4 [place] (four) Medical times Branch daily. ondansetron 2021-04 Yes [id number] 4mg Take 1 Univers 4 mg 0-26 tablet by ity of disintegrat 00:00: mouth [place] ing tablet 00 every 4 Medica l (four) Branch hours as needed for Nausea and Vomiting (N/V). dicyclomine 2021-04 Yes [id number] 20mg Take 1 Univers 20 mg 0-26 tablet by ity of tablet 00:00: mouth 4 [place] 00 (four) Medical times Branch daily. ondansetron 2021-04 Yes [id number] 4mg Take 1 Univers 4 mg 0-26 tablet by ity of disintegrat 00:00: mouth [place] ing tablet 00 every 4 Medica l (four) Branch hours as needed for Nausea and Vomiting (N/V). dicyclomine 2021-04 Yes [id number] 20mg Take 1 Univers 20 mg 0-26 tablet by ity of tablet 00:00: mouth 4 (four) Medical times Branch daily. ondansetron 2021- Yes [id number] 4mg Take 1 Univers 4 mg 0-26 tablet by ity of disintegrat 00:00: mouth [place] ing tablet 00 every 4 Medica l (four) Branch hours as needed for Nausea and Vomiting (N/V). dicyclomine 2021-04 Yes [id number] 20mg Take 1 Univers 20 mg 0-26 tablet by ity of tablet 00:00: mouth 4 (four) Medical times Branch daily. ondansetron 2021-04 Yes [id number] 4mg Take 1 Univers 4 mg 0-26 tablet by ity of disintegrat 00:00: mouth [place] ing tablet 00 every 4 Medica l (four) Branch hours as needed for Nausea and Vomiting (N/V). dicyclomine 2021-04 Yes [id number] 20mg Take 1 Univers 20 mg 0-26 tablet by ity of tablet 00:00: mouth (four) Medical times Branch daily. ondansetron 2021-04 Yes [id number] 4mg Take 1 Univers 4 mg 0-26 tablet by ity of disintegrat 00:00: mouth [place] ing tablet 00 every 4 Medica l (four) Branch hours as needed for Nausea and Vomiting (N/V). dicyclomine 2021- Yes [id number] 20mg Take 1 Univers 20 mg 0-26 tablet by ity of tablet 00:00: mouth 4 [place] (four) Medical times Branch daily. ondansetron 2021- Yes [id number] 4mg Take 1 Univers 4 mg 0-26 tablet by ity of disintegrat 00:00: mouth [place] ing tablet 00 every 4 Medica l (four) Branch hours as needed for Nausea and Vomiting (N/V). dicyclomine 2021-04 Yes [id number] 20mg Take 1 Univers 20 mg 0-26 tablet by ity of tablet 00:00: mouth 4 [place] 00 (four) Medical times Branch daily. ondansetron 2021-04 Yes [id number] 4mg Take 1 Univers 4 mg 0-26 tablet by ity of disintegrat 00:00: mouth [place] ing tablet 00 every 4 Medica l (four) Branch hours as needed for Nausea and Vomiting (N/V). dicyclomine 2021-04 Yes [id number] 20mg Take 1 Univers 20 mg 0-26 tablet by ity of tablet 00:00: mouth 4 [place] (four) Medical times Branch daily. ondansetron 2021-04 Yes [id number] 4mg Take 1 Univers 4 mg 0-26 tablet by ity of disintegrat 00:00: mouth [place] ing tablet 00 every 4 Medica l (four) Branch hours as needed for Nausea and Vomiting (N/V). dicyclomine 2021-04 Yes [id number] 20mg Take 1 Univers 20 mg 0-26 tablet by ity of tablet 00:00: mouth 4 (four) Medical times Branch daily. ondansetron 2021-04 Yes [id number] 4mg Take 1 Univers 4 mg 0-26 tablet by ity of disintegrat 00:00: mouth [place] ing tablet 00 every 4 Medica l (four) Branch hours as needed for Nausea and Vomiting (N/V). dicyclomine 2021-04 Yes [id number] 20mg Take 1 Univers 20 mg 0-26 tablet by ity of tablet 00:00: mouth 4 (four) Medical times Branch daily. ondansetron 2021-04 Yes [id number] 4mg Take 1 Univers 4 mg 0-26 tablet by ity of disintegrat 00:00: mouth [place] ing tablet 00 every 4 Medica l (four) Branch hours as needed for Nausea and Vomiting (N/V). dicyclomine 2021-04 Yes [id number] 20mg Take 1 Univers 20 mg 0-26 tablet by ity of tablet 00:00: mouth 4 [place] 00 (four) Medical times Branch daily. ondansetron 2021-04 Yes [id number] 4mg Take 1 Univers 4 mg 0-26 tablet by ity of disintegrat 00:00: mouth [place] ing tablet 00 every 4 Medica l (four) Branch hours as needed for Nausea and Vomiting (N/V). dicyclomine 2021-04 Yes [id number] 20mg Take 1 Univers 20 mg 0-26 tablet by ity of tablet 00:00: mouth 4 [place] 00 (four) Medical times Branch daily. naproxen 2021-04- No [id number] 500mg Take 1 U nivers 500 mg 0-26 11-06 tablet by ity of tablet 00:00: 04:59 mouth in [place] 00 :00 the Medical morning Branch and 1 tablet in the evening. Take with meals. Do all this for 10 days. esomeprazol Yes [id number] 20mg Take 20 mg Univers e (NEXIUM) 5-06 by mouth ity o f 20 mg 00:00: daily [place] capsule 00 before a Medical meal. [place] esomeprazol Yes [id number] 20mg Take 20 mg Univers e (NEXIUM) 5-06 by mouth ity o f 20 mg 00:00: daily [place] capsule 00 before a Medical meal. [place] esomeprazol Yes [id number] 20mg Take 20 mg Univers e (NEXIUM) 5-06 by mouth ity o f 20 mg 00:00: daily [place] capsule 00 before a Medical meal. [place] esomeprazol Yes [id number] 20mg Take 20 mg Univers e (NEXIUM) 5-06 by mouth ity o f 20 mg 00:00: daily [place] capsule 00 before a Medical meal. [place] esomeprazol Yes [id number] 20mg Take 20 mg Univers e (NEXIUM) 5-06 by mouth ity o f 20 mg 00:00: daily [place] capsule 00 before a Medical meal. [place] esomeprazol Yes [id number] 20mg Take 20 mg Univers e (NEXIUM) 5-06 by mouth ity o f 20 mg 00:00: daily [place] capsule 00 before a Medical meal. [place] esomeprazol Yes [id number] 20mg Take 20 mg Univers e (NEXIUM) 5-06 by mouth ity o f 20 mg 00:00: daily [place] capsule 00 before a Medical meal. Branch esomeprazol 0 Yes [id number] 20mg Take 20 mg Univers e (NEXIUM) 5-06 by mouth ity o f 20 mg 00:00: daily [place] capsule 00 before a Medical meal. Branch esomeprazol 0 Yes [id number] 20mg Take 20 mg Univers e (NEXIUM) 5-06 by mouth ity o f 20 mg 00:00: daily [place] capsule 00 before a Medical meal. Branch esomeprazol 0 Yes [id number] 20mg Take 20 mg Univers e (NEXIUM) 5-06 by mouth ity o f 20 mg 00:00: daily [place] capsule 00 before a Medical meal. Branch esomeprazol 0 Yes [id number] 20mg Take 20 mg Univers e (NEXIUM) 5-06 by mouth ity o f 20 mg 00:00: daily [place] capsule 00 before a Medical meal. Branch esomeprazol 0 Yes [id number] 20mg Take 20 mg Univers e (NEXIUM) 5-06 by mouth ity o f 20 mg 00:00: daily [place] capsule 00 before a Medical meal. Branch esomeprazol 0 Yes [id number] 20mg Take 20 mg Univers e (NEXIUM) 5-06 by mouth ity o f 20 mg 00:00: daily [place] capsule 00 before a Medical meal. Branch esomeprazol 0 Yes [id number] 20mg Take 20 mg Univers e (NEXIUM) 5-06 by mouth ity o f 20 mg 00:00: daily [place] capsule 00 before a Medical meal. Branch esomeprazol 0 Yes [id number] 20mg Take 20 mg Univers e (NEXIUM) 5-06 by mouth ity o f 20 mg 00:00: daily [place] capsule 00 before a Medical meal. Branch esomeprazol 0 Yes [id number] 20mg Take 20 mg Univers e (NEXIUM) 5-06 by mouth ity o f 20 mg 00:00: daily [place] capsule 00 before a Medical meal. Branch esomeprazol 0 Yes [id number] 20mg Take 20 mg Univers e (NEXIUM) 5-06 by mouth ity o f 20 mg 00:00: daily [place] capsule 00 before a Medical meal. Branch esomeprazol 2020-0 Yes [id number] 20mg Take 20 mg Univers e (NEXIUM) 5-06 by mouth ity o f 20 mg 00:00: daily [place] capsule 00 before a Medical meal. Branch esomeprazol 2020-0 Yes [id number] 20mg Take 20 mg Univers e (NEXIUM) 5-06 by mouth ity o f 20 mg 00:00: daily [place] capsule 00 before a Medical meal. Branch ondansetron 2020-0 Yes [id number] 4mg Take 1 Univers (ZOFRAN 5-06 tablet by ity of ODT) 4 mg 00:00: mouth [place] disintegrat 00 every 8 Medic al ing tablet (eight) Branch hours as needed for Nausea and Vomiting (N/V). ondansetron 2020-0 2- No [id number] 4mg Take 1 Univers (ZOFRAN 5-06 10-26 tablet by ity of ODT) 4 mg 00:00: 00:00 mouth [place] disintegrat 00 :00 every 8 Medic al ing tablet (eight) Branch hours as needed for Nausea and Vomiting (N/V). ondansetron 2020-0 Yes [id number] 4mg Take 1 Univers (ZOFRAN) 4 2-09 tablet by ity of mg tablet 00:00: mouth [place] 00 every 8 Medical (eight) Branch hours as needed for Nausea and Vomiting (N/V). ondansetron 2020-0 Yes [id number] 4mg Take 1 Univers (ZOFRAN) 4 2-09 tablet by ity of mg tablet 00:00: mouth [place] 00 every 8 Medical (eight) Branch hours as needed for Nausea and Vomiting (N/V). ondansetron 2020-0 Yes [id number] 4mg Take 1 Univers (ZOFRAN) 4 2-09 tablet by ity of mg tablet 00:00: mouth [place] 00 every 8 Medical (eight) Branch hours as needed for Nausea and Vomiting (N/V). ondansetron 2020-0 Yes [id number] 4mg Take 1 Univers (ZOFRAN) 4 2-09 tablet by ity of mg tablet 00:00: mouth [place] 00 every 8 Medical (eight) Branch hours as needed for Nausea and Vomiting (N/V). ondansetron 2021-0 Yes [id number] 4mg Take 1 Univers (ZOFRAN) 4 2-09 tablet by ity of mg tablet 00:00: mouth [place] 00 every 8 Medical (eight) Branch hours as needed for Nausea and Vomiting (N/V). ondansetron 1-0 Yes [id number] 4mg Take 1 Univers (ZOFRAN) 4 2-09 tablet by ity of mg tablet 00:00: mouth [place] 00 every 8 Medical (eight) Branch hours as needed for Nausea and Vomiting (N/V). ondansetron 2020-0 Yes [id number] 4mg Take 1 Univers (ZOFRAN) 4 2-09 tablet by ity of mg tablet 00:00: mouth [place] 00 every 8 Medical (eight) Branch hours as needed for Nausea and Vomiting (N/V). ondansetron 2020-0 Yes [id number] 4mg Take 1 Univers (ZOFRAN) 4 2-09 tablet by ity of mg tablet 00:00: mouth [place] 00 every 8 Medical (eight) Branch hours as needed for Nausea and Vomiting (N/V). ondansetron 2020-0 Yes [id number] 4mg Take 1 Univers (ZOFRAN) 4 2-09 tablet by ity of mg tablet 00:00: mouth [place] 00 every 8 Medical (eight) Branch hours as needed for Nausea and Vomiting (N/V). ondansetron 2020-0 Yes [id number] 4mg Take 1 Univers (ZOFRAN) 4 2-09 tablet by ity of mg tablet 00:00: mouth [place] 00 every 8 Medical (eight) Branch hours as needed for Nausea and Vomiting (N/V). ondansetron 2021-0 Yes [id number] 4mg Take 1 Univers (ZOFRAN) 4 2-09 tablet by ity of mg tablet 00:00: mouth [place] 00 every 8 Medical (eight) Branch hours as needed for Nausea and Vomiting (N/V). ondansetron 2021-0 Yes [id number] 4mg Take 1 Univers (ZOFRAN) 4 2-09 tablet by ity of mg tablet 00:00: mouth [place] 00 every 8 Medical (eight) Branch hours as needed for Nausea and Vomiting (N/V). ondansetron 2021-0 Yes [id number] 4mg Take 1 Univers (ZOFRAN) 4 2-09 tablet by ity of mg tablet 00:00: mouth [place] 00 every 8 Medical (eight) Branch hours as needed for Nausea and Vomiting (N/V). ondansetron 2020-0 Yes [id number] 4mg Take 1 Univers (ZOFRAN) 4 2-09 tablet by ity of mg tablet 00:00: mouth [place] 00 every 8 Medical (eight) Branch hours as needed for Nausea and Vomiting (N/V). ondansetron 0 Yes [id number] 4mg Take 1 Univers (ZOFRAN) 4 2-09 tablet by ity of mg tablet 00:00: mouth [place] 00 every 8 Medical (eight) Branch hours as needed for Nausea and Vomiting (N/V). ondansetron 2020-0 Yes [id number] 4mg Take 1 Univers (ZOFRAN) 4 2-09 tablet by ity of mg tablet 00:00: mouth [place] 00 every 8 Medical (eight) Branch hours as needed for Nausea and Vomiting (N/V). ondansetron 0 Yes [id number] 4mg Take 1 Univers (ZOFRAN) 4 2-09 tablet by ity of mg tablet 00:00: mouth [place] 00 every 8 Medical (eight) Branch hours as needed for Nausea and Vomiting (N/V). ondansetron 2020-0 Yes [id number] 4mg Take 1 Univers (ZOFRAN) 4 2-09 tablet by ity of mg tablet 00:00: mouth [place] 00 every 8 Medical (eight) Branch hours as needed for Nausea and Vomiting (N/V). ondansetron 0 Yes [id number] 4mg Take 1 Univers (ZOFRAN) 4 2-09 tablet by ity of mg tablet 00:00: mouth [place] 00 every 8 Medical (eight) Branch hours as needed for Nausea and Vomiting (N/V). Vital Signs Vital Name Observation Time Observation Value Comments Source Systolic blood 2022-12-21 18:04:00 142 mm[Hg] Univer [facility] of [facility] Diastolic blood 2022-12-21 18:04:00 92 [facility]Hg[facility] 2022-12-21 18:04:00 77 /min [facility] [place] [facility] Body temperature 2022-12-21 18:04:00 37.22 Maura Univ [facility] [place] [facility] Respiratory rate 2022-12-21 18:04:00 16 /min Univ ers[facility] [place] [facility] Body height 2022-12-21 18:04:00 160 cm Univers[facility] [place] [facility] Body weight 2022-12-21 18:04:00 79.379 kg [facility] [place] [facility] BMI 2022-12-21 18:04:00 31.00 kg/m2 Univers[facility] [place] [facility] Oxygen saturation in 2022-12-21 18:04:00 98 /min University of Arterial blood by [place] [employer] [facility] Pulse oximetry Branch Systolic blood 2022-04-02 08:17:00 120 mm[Hg] Univer sity of pressure [place] [facility] Diastolic blood 2022-04-02 08:17:00 81 mm[Hg] Unive rsity of pressure [place] [facility] Heart rate 2022-04-02 08:17:00 96 /min Universi [facility] [place] [facility] Body temperature 2022-04-02 08:17:00 37.28 Maura Univ ers[facility] [place] [facility] Respiratory rate 2022-04-02 08:17:00 18 /min Univ ers[facility] [place] [facility] Body height 2022-04-02 08:17:00 160 cm [facility] [place] [facility] Body weight 2022-04-02 08:17:00 82.101 kg [facility] [place] [facility] BMI 2022-04-02 08:17:00 32.06 kg/m2 Univers[facility] [place] [facility] Oxygen saturation in 2022-04-02 08:17:00 97 /min University of Arterial blood by [facility] [place] [facility] eris Pulse oximetry Branch Systolic blood 2022-02-24 19:09:00 115 mm[Hg] Univer sity of pressure [place] [facility] Diastolic blood 2022-02-24 19:09:00 78 mm[Hg] Unive rsity of pressure [place] [facility] Heart rate 2022-02-24 19:09:00 76 /min [facility] [place] [facility] Body temperature 2022-02-24 19:09:00 36.83 Maura Univ [facility] [place] [facility] Body height 2022-02-24 19:09:00 160 cm [facility] [place] [facility] Body weight 2022-02-24 19:09:00 82.283 kg [facility] [place] [facility] BMI 2022-02-24 19:09:00 32.13 kg/m2 [facility] [place] [facility] Oxygen saturation in 2022-02-24 19:09:00 95 /min University of Arterial blood by [facility] Pulse oximetry Branch Systolic blood 2022-02-05 06:35:00 128 mm[Hg] Univer sity of pressure [place] [facility] [place] Diastolic blood 2022-02-05 06:35:00 78 mm[Hg] Unive rsity of [facility] Heart rate 2022-02-05 06:35:00 72 /min [facility] [place] [facility] [facility] Oxygen saturation in 2022-02-05 06:35:00 98 /min [facility] Arterial blood by [facility] Pulse oximetry Branch Body temperature 2022-02-05 02:52:00 37.11 Maura [facility] Respiratory rate 2022-02-05 02:52:00 16 /min [facility] Body height 2022-02-05 02:52:00 160 cm [facility] Body weight 2022-02-05 02:52:00 80.287 kg [facility] BMI 2022-02-05 02:52:00 31.35 kg/m2 [facility] [place] Height Measured 2022-01-16 13:33:00 60.22 inches Body Temperature 2022-01-16 13:33:00 97.40 degrees Heart Rate 2022-01-16 13:33:00 89.00 /min Respiratory Rate 2022-01-16 13:33:00 19.00 /min BP Systolic 2022-01-16 13:33:00 130 mm[Hg] BP Diastolic 2022-01-16 13:33:00 77 mm[Hg] Weight Measured 2022-01-16 13:33:00 177.60 pounds Procedures Procedure Date / Time Performing Clinician Source Performed RAPID STREP SCREEN FOR 2022-12-21 18:34:00 Nima Guallpa [facility] A Medical Branch CONSENT/REFUSAL FOR 2022-12-21 17:57:11 Doctor Unassigned, No Un [facility] DIAGNOSIS AND TREATMENT Name Medical Branch URINALYSIS 2022-04-02 10:07:00 William King [facility] POCT TEST 2022-04-02 10:07:00 William King [facility] RAPID INFLUENZA A/B 2022-04-02 09:12:00 William King [facility] COVID-19 (ID NOW RAPID 2022-04-02 09:12:00 William King [facility] TESTING) [facility] RHEUMATOID FACTOR 2022-02-24 20:09:00 Leticia Hall [facility] POCT TEST 2022-02-24 19:55:00 Leticia Hall [facility] FLU VACC ([id number]), 6 2022-02-24 19:31:03 Leticia Hall [facility] MO-62 YRS, .5ML, IM, Medical Bra nch QUAD (FLUCELVAX) ASSIGNMENT OF BENEFITS 2022-02-24 18:15:30 Doctor Unassigned, No [facility] CT ABDOMEN PELVIS W 2022-02-05 04:54:15 Smith Dennis [facility] CONTRAST [facility] CT THORAX W CONTRAST 2022-02-05 04:54:15 Smith Dennis [facility] XR SHOULDER 2+ VW LEFT 2022-02-05 04:53:46 Smith Dennis [facility] LIPASE 2022-02-05 04:02:00 Smith Dennis [facility] COMP. METABOLIC PANEL 2022-02-05 04:02:00 Smith Dennis [facility] ([id number]) [facility] CBC WITH DIFF 2022-02-05 04:02:00 Smith Dennis [facility] PROTHROMBIN TIME / INR 2022-02-05 04:02:00 Smith [facility] ACTIVATED PARTIAL 2022-02-05 04:02:00 Smith Dennis [facility] THRMPLAS SCOOBY [facility] POCT TEST 2022-02-05 03:56:00 Smith Dennis [facility] URINALYSIS 2022-02-05 03:53:00 Smith Dennis o f [facility] CONSENT/REFUSAL FOR 2022-02-05 02:42:52 Doctor Unassigned, No Un [facility] DIAGNOSIS AND TREATMENT Name [facility] Plan of Care Planned Activity Planned Date Details Comments Source Goal Plan of Care Note [code = 06807-9] Goal Plan of Care Note [code = 11553-2] Encounters Start End Encounter Admission Attending Care Care Encounter Source Date/Time Date/Time Type Type Clinicians Facility Department ID 2021-02-10 Emergency [facility] [id number] Univers 17:24:10 ity [facility] 2021-02-09 Emergency [facility] [id number] Univers 22:37:34 ity [facility] 2021-02-08 Emergency [facility] [id number] Univers [facility] 2022-12-21 2022-12-21 Emergency [facility] [id number] Univers 13:05:00 14:45:00 [facility] 2022-12-21 2022-12-[address] [facility] [id number] Univers 13:05:00 14:45:00 Nima KNUTSON 350.1.13.10 i ty of [place] 4.2.7.2.686 [facility] [id number] [address] 2022-12-11 2022-12-11 Outpatient LISA GONZALEZ [id number] Umesh 13:37:45 13:37:45 0831 F Alfa 2022-04-02 2022-04-02 Emergency [facility] [id number] Univers 02:18:00 04:44:00 WILLIAM elliott [facility] 2022-04-02 2022-04-02 Emergency [facility] [id number] Univers 02:18:00 04:44:00 William KNUTSON 350.1.13.10 i ty of [place] 4.2.7.2.686 [facility] [id number] [address] 2022-03-13 2022-03-13 Outpatient Sudhir DIEZ [facility] [id number] Univers 09:00:00 09:00:00 CHRISTIANA ity of [facility] 2022-03-12 2022-03-12 Telephone Tomasbernard [facility] [id number] Univers 00:00:00 00:00:00 Leticia HEALTH 350.1.13.10 it y of [place] 4.2.7.2.686 Casimiro as BLAYNE?BLEA [id number] Mt amber RAMON [address] MEDICAL OFFICE [facility] 2022-03-07 2022-03-07 Patient Doctor [facility] 1.2.840.114 [id number] Univers 00:00:00 00:00:00 Secure Msg Unassigned, HEALTH 350.1.13.10 ity of [place] 4.2.7.2.686 Casimiro as BLAYNE?BLEA [id number] Mt amber RAMON [address] [facility] OFFICE [facility] 2022-03-05 2022-03-05 Telephone Isabel [facility] [id number] Univers 00:00:00 00:00:00 Leticia HEALTH 350.1.13.10 it y of [place] 4.2.7.2.686 Casimiro as BLAYNE?BLEA [id number] Mt amber RAMON [address] [facility] OFFICE [facility] 2022-02-28 2022-02-28 Patient Isabel [facility] 1.2.840.114 [id number] Univers 00:00:00 00:00:00 Secure Msg Leticia HEALTH 350.1.13.10 ity of [place] 4.2.7.2.686 Casimiro as BLAYNE?BLEA [id number] Mt amber RAMON [address] [place] [address] OFFICE [facility] 2022-02-27 2022-02-27 Telephone [facility] [id number] Univers 00:00:00 00:00:00 Leticia HEALTH 350.1.13.10 it y of [place] 4.2.7.2.686 Casimiro as BLAYNE?BLEA [id number] Mt amber RAMON [address] [place] [address] OFFICE [facility] 2022-02-25 2022-02-25 Patient Isabel [facility] 1.2.840.114 [id number] Univers 00:00:00 00:00:00 Secure Msg Leticia HEALTH 350.1.13.10 ity of [place] 4.2.7.2.686 Casimiro as BLAYNE?BLEA [id number] [facility] [address] MEDICAL OFFICE [facility] 2022-02-25 2022-02-25 Patient Doctor ART 1.2.840.114 [id number] Univers 00:00:00 00:00:00 Secure Msg Unassigned, ADILIA 350.1.13.10 ity of [place] [facility] 4.2.7.2.686 Casimiro as [id number] [facility] [address] 2022-02-24 2022-02-24 Outpatient R ISABEL [facility] [id number] Univers 13:58:22 23:59:00 LETICIA elliott [facility] 2022-02-24 2022-02-24 Finger [facility], Ang - Db [facility] 1.2.840.1 [id number] Univers 14:00:00 14:22:07 Visit Leticia Hall 350.1.13.10 ity of [place] 4.2.7.2.686 Casimiro as BLAYNE?BLEA [id number] [facility] [address] [facility] OFFICE [facility] 2022-02-24 2022-02-24 Office Isabel [facility] 1.2.840.114 [id number] Univers 13:00:00 13:30:00 Visit Leticia EASLEY 350.1.13.10 it [facility] 4.2.7.2.686 Casimiro as BLAYNE?BLEA [phone] [facility] [address] MEDICAL OFFICE [facility] 2022-02-24 2022-02-24 Orders Doctor ART 1.2.840.114 [id number] Univers 00:00:00 00:00:00 Only Unassigned, ADILIA 350.1.13.10 ity of [place] [facility] 4.2.7.2.686 Casimiro as [id number] [facility] [address] 2022-02-10 2022-02-10 Outpatient R ISABEL [facility] [id number] Univers 13:00:00 13:00:00 LETICIA elliott [facility] 2022-02-04 2022-02-05 Emergency Dennis [facility] [id number] Univers 21:48:00 01:59:00 Smith [place] 350.1.13.10 i ty [facility] 4.2.7.2.686 [facility] [id number] [address] 2022-02-04 2022-02-05 Emergency [facility] [id number] Univers 21:48:00 [facility]:59[facility]00 [facility] 2022-01-16 Outpatient [facility] [id number] Umesh 13:33:14 13:33:14 1006 F [place] 2022-01-16 2022-01-16 Outpatient [id number] 00:00:00 00:00:00 Visit fbed-4fad [facility]-4fad-9 -[id number] 2021-06-12 2021-06-12 Elisa Eckert [facility] 1.2.840.114 [id number] Univers 00:00:00 00:00:00 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 Results Test Description Test Time Test Comments Results Result Comments Source POCT TEST 2022-04-02 10:07:00 Test Item Value Reference Range Interpretation Comme nts POCT PREG (test code = 1605) negative On board controls acceptable with C Line (test code = 3574) present POCT PREG LOT # (test code = 3575) [id number] POCT PREG TEST DATE (test code = 3576) 07/12/2023 Lab Interpretation (test code = 78560-2) [facility] [id number] 17:41:26 Test Item Value Reference Range Interpretation Comments RF (test code = See_Comment [Automated message] [id number]) The system whic h generated this result transmitted ref erence range: <20 IU/m L. The reference range was not used to int erpret this result as normal/abnormal . Lab Interpretation (test Normal code = 39938-4) [facility] [id number] 19:55:00 Test Item Value Reference Range Interpretation Comments POCT PREG (test code = 1605) Negative On board controls acceptable with C Yes Line (test code = 3574) POCT PREG LOT # (test code = 3575) POCT PREG TEST DATE (test code = 3576) Lab Interpretation (test code = Normal 66552-5) [facility] [id number] 19:55:00 Test Item Value Reference Range Interpretation Comments POCT PREG (test code = 1605) Negative On board controls acceptable with C Yes Line (test code = 3574) POCT PREG LOT # (test code = 3575) POCT PREG TEST DATE (test code = 3576) Lab Interpretation (test code = Normal 67819-3) [facility] THRMPLAS [id number] 04:45:54 Test Item Value Reference Range Interpretation Comments APTT Patient (test See_Comment [Automat ed code = 3173-2) message] The system which generated this result transmitted reference range : 23 - 38 Seconds . The reference range was not used to interpr et this result as normal/abnormal . SOLOMON (test code = SOLOMON) The [facility] patient population mean normal value for aPTT is 30 seconds. Lab Interpretation Normal (test code = 61066-2) [facility] [id number] 04:43:34 Test Item Value Reference Range Interpretation Comments WBC (test code = See_Comment [Automated 1090-2) message] The sy stem which generated this result transmitted reference range : 4.30 - 11.10 10*3/?L. The reference range was not used to interpret this result as normal/abnormal . RBC (test code = See_Comment [Automated 193-8) message] The sy stem which generated this [...] RDW-SD (test code = 40.0 fL 39.0-49.9 65583-0) RDW-CV (test code = 12.4 % 12.0-15.5 788-0) PLT (test code = See_Comment L [Automated 777-3) message] The sy stem which generated this result transmitted reference range : 166 - 358 10*3/ ?L. The reference r berenice was not used to interpret this result as normal/abnormal . MPV (test code = 13.5 fL 9.5-12.9 H 29602-8) IPF % (test code = 20.9 % 1.3-7.7 H Platelet count 2265048060) measured by fluorescence method. NRBC/100 WBC (test See_Comment [Automat ed code = 7630381492) message] The system which generated this result transmitted reference range : 0.0 - 10.0 /100 WBCs. The refer ence range was not u sed to interpret th is result as normal/abnormal . NRBC x10^3 (test code See_Comment [Auto mated = 2653268814) message] The s ystem which generated this result transmitted reference range : 10*3/?L. The reference range was not used to interpret this result as normal/abnormal . GRAN MAT (NEUT) % 56.4 % (test code = 770-8) IMM GRAN % (test code 0.30 % = 5669701029) LYMPH % (test code = 36.4 % 736-9) MONO % (test code = 5.4 % 5905-5) EOS % (test code = 1.1 % 713-8) BASO % (test code = 0.4 % 706-2) GRAN MAT x10^3(ANC) 5.73 10*3/uL 1.88-7.09 (test code = 9278716355) IMM GRAN x10^3 (test 0.03 10*3/uL 0.00-0.06 code = 4258147626) LYMPH x10^3 (test code 3.69 10*3/uL 1.32-3.29 H = 731-0) MONO x10^3 (test code 0.55 10*3/uL 0.33-0.92 = 742-7) EOS x10^3 (test code = 0.11 10*3/uL 0.03-0.39 711-2) BASO x10^3 (test code 0.04 10*3/uL 0.01-0.07 = 704-7) Lab Interpretation Abnormal (test code = 37849-2) [facility] / [id number] 04:43:14 Test Item Value Reference Range Interpretation Comments PROTIME PATIENT (test See_Comment [Auto mated message] code = 5964-2) The system Szl ich generated this result transmitted ref erence range: 12.0 - 1 4.7 Seconds. The re ference range was not u sed to interpret this result as normal/abnor mal. INR (test code = 6301-6) Nor mal INR <1.1; Warfarin Therap eutic range 2.0 to 3. 0 or 2.5 to 3.5, dep ending upon the indica tions. Lab Interpretation (test Normal code = 92995-3) [facility]OL[facility] PAN[facility] (02233)2022-02-05 04:36:15 Test Item Value Reference Range Interpretation Comments NA (test code = 142 mmol/L 135-145 1847174171) K (test code = 3.8 mmol/L 3.5-5.0 3502992730) CL (test code = 106 mmol/L 98-108 0792148259) CO2 TOTAL (test code 28 mmol/L 23-31 = 5966834390) AGAP (test code = 2-16 3741088474) BUN (test code = 13 mg/dL 7-23 7693318436) GLUCOSE (test code = 93 mg/dL 70-110 5010072956) CREATININE (test code 0.83 mg/dL 0.50-1.04 = 9862449953) TOTAL BILI (test code 0.3 mg/dL 0.1-1.1 = 6735841448) CALCIUM (test code = 8.8 mg/dL 8.6-10.6 5408367610) T PROTEIN (test code 7.3 g/dL 6.3-8.2 = 2554361875) ALBUMIN (test code = 4.7 g/dL 3.5-5.0 3210985811) ALK PHOS (test code = 65 U/L 34-122 3917190596) ALTv (test code = 24 U/L 5-35 1742-6) AST(SGOT) (test code 21 U/L 13-40 = 6925536731) eGFR (test code = mL/min/1.73m2 1610464721) SOLOMON (test code = SOLOMON) Association of [...] or urine or abnormalities in imaging tests). [facility] 04:36:14 Test Item Value Reference Range Interpretation Comments LIPASE (test code = 0002576261) 106 U/L 0-220 Lab Interpretation (test code = Normal 40110-5) [facility] HospitalPO[facility] [id number] 03:56:00 Test Item Value Reference Range Interpretation Comments POCT PREG (test code = 1605) negative On board controls acceptable with present C Line (test code = 3574) POCT PREG LOT # (test code = 3575) [id number] POCT PREG TEST DATE (test 06/11/2023 code = 3576) Lab Interpretation (test code = Normal 53369-4) [facility]"
[2023-02-13] MEDS ORDERED: dexAMETHasone 4 MG TAB ONE ×2 (22:02→22:05)
--- NOTE | 2023-02-13 22:31 | EDPHYS ---
Physician Documentation [facility] Name: Batsheva Bartlett Age: 32 yrs Sex: Female : 1990 Arrival Date: 02/13/2023 Time: 18:19 Bed Treatment Private MD: ED Physician Nikita Jesus HPI: 02/13 19:05 This 32 yrs old Female presents to ER via Ambulatory with complaints of Sore cp Throat, Difficulty Swallowing. 19:05 The patient presents with sore throat, dysphagia, of solids. The patient describes cp throat pain as constant. Onset: The symptoms/episode began/occurred 2 week(s) ago. Associated signs and symptoms: Pertinent positives: cough, Pertinent negatives diarrhea, earache, fever, vomiting. Patient reports she was diagnosed with strep throat 2 weeks ago and prescribed Amoxicillin. Patient c/o sore throat not resolving. Historical: - Allergies: 18:45 No Known Allergies; cm10 - PMHx: 18:45 Diverticulitis; Genital herpes simplex; cm10 18:45 thrombocytopenia; cm10 - PSHx: 18:45 section; section; section; cm10 - Immunization history:: Adult Immunizations unknown. - Social history:: Smoking status: Patient denies any tobacco usage or history of. ROS: 19:10 Constitutional: Negative for body aches, chills, fever, poor PO intake, cp 19:10 ENT: Positive for sore throat, Negative for drainage from ear(s), ear pain, rhinorrhea, cp difficulty swallowing, difficulty handling secretions, 19:10 Cardiovascular: Negative for chest pain, 19:10 Respiratory: Positive for cough, Negative for shortness of breath, wheezing, 19:10 Abdomen/GI: Negative for abdominal pain, nausea, vomiting, and diarrhea, 19:10 Neuro: Negative for altered mental status, dizziness, headache, weakness, 19:10 All other systems are negative, Exam: 19:15 Constitutional: The patient appears in no acute distress, alert, awake, cp non-diaphoretic, non-toxic, well developed, well nourished, obese, 19:15 Head/Face: Normocephalic, atraumatic. cp 19:15 Eyes: Periorbital structures: appear normal, Conjunctiva: normal, no exudate, no injection, Sclera: no appreciated abnormality, Lids and lashes: appear normal, bilaterally, 19:15 ENT: External ear(s): are unremarkable, Ear canal(s): are normal, clear, TM's: dullness, bilaterally, Nose: is normal, Mouth: Lips: moist, Oral mucosa: pink and intact, moist, Posterior pharynx: Airway: no evidence of obstruction, patent, Tonsils: with erythema, Uvula: midline, swelling, is not appreciated, erythema, that is mild, exudate, is not appreciated, 19:15 Neck: ROM/movement: is normal, is supple, without pain, no range of motions limitations, no meningismus, no nuchal rigidity, Lymph nodes: no appreciated lymphadenopathy, 19:15 Chest/axilla: Inspection: normal, 19:15 Cardiovascular: Rate: normal, Rhythm: regular, 19:15 Respiratory: the patient does not display signs of respiratory distress, Respirations: normal, no use of accessory muscles, no retractions, labored breathing, is not present, Breath sounds: are clear throughout, no decreased breath sounds, no stridor, no wheezing, 19:15 Abdomen/GI: Inspection: abdomen appears normal, Palpation: abdomen is soft and non-tender, in all quadrants, Vital Signs: 18:46 BP 144 / 101; Pulse 94; Resp 18; Temp 98; Pulse Ox 98% ; Weight 79.38 kg; Height 5 ft. cm10 2 in. ; Pain 10/10; 22:39 BP 145 / 96; Pulse 76; Resp 16; Pulse Ox 100% on R/A; jb4 18:46 Body Mass Index 32.01 (79.38 kg, 157.48 cm) cm10 18:46 Pain Scale: Adult cm10 MDM: 18:52 Patient medically screened. cp 22:30 Data reviewed: vital signs, nurses notes, lab test result(s), radiologic studies, plain cp films. 22:30 Differential diagnosis: group A strep tonsillitis, khang's angina, mononucleosis, cp peritonsillar abscess pharyngitis. I considered the following discharge prescriptions or medication management in the emergency department Medications were administered in the Emergency Department. See MAR. Counseling: I had a detailed discussion with the patient and/or guardian regarding the historical points, exam findings, and any diagnostic results supporting the discharge/admit diagnosis, lab results, radiology results, to return to the emergency department if symptoms worsen or persist or if there are any questions or concerns that arise at home. 02/13 18:45 Order name: [place] Screen Profile; Complete Time: 21:46 02/13 21:46 Interpretation: Reviewed. 02/13 18:45 Order name: Strep; Complete Time: 21:46 cp 02/13 21:46 Interpretation: Reviewed. 02/13 18:45 Order name: COVID-19 SARS RT PCR; Complete Time: 21:46 02/13 20:31 Order name: Throat Culture EDAL 02/13 21:54 Order name: XRAY Chest (1 view) cp Administered Medications: 21:53 Drug: Dexamethasone PO 10 mg PO once; may give if not Route: PO; jb4 Disposition: 21:30 Co-signature as Attending Physician, Nikita Jesus MD I agree with the assessment and cp3 plan of care. Disposition Summary: 02/13/23 22:31 Discharge Ordered Notes: Location: Home cp Problem: new cp Symptoms: have improved cp Condition: Stable cp Diagnosis - Cough cp - Acute pharyngitis, unspecified cp Followup: cp - With: Private Physician - When: 2 - 3 days - Reason: Recheck today's complaints Discharge Instructions: - Discharge Summary Sheet cp - Pharyngitis cp - Cough, Adult cp Forms: - Medication Reconciliation Form cp - Thank You Letter cp - Antibiotic Education cp - Prescription Opioid Use cp - Patient Portal Instructions cp - Leadership Thank You Letter cp Prescriptions: - Tessalon Perles 100 mg Oral Capsule - take 1 capsule ORAL route every 8 hours As needed; 15 capsule; Refills: 0, cp Product Selection Permitted - Zithromax Z-Baron 250 mg Oral Tablet - take 1 tablet ORAL route as directed for 5 days Day 1 - take two (2) tablets cp one time. Day 2, 3, 4 , 5 take one (1) tablet once daily.; 6 tablet; Refills: 0, Product Selection Permitted Signatures: Dispatcher [employer] Nikita Whittington MD MD cp3 Tyrel Robbins PA PA cp Bradley Reyes, RN RN jb4 Darleen Akers RN RN cm10
--- NOTE | 2023-02-13 22:31 | ER ---
Nurse's Notes [facility] Name: Batsheva Bartlett Age: 32 yrs Sex: Female : 1990 Arrival Date: 02/13/2023 Time: 18:19 Bed Treatment Private MD: Diagnosis: Cough;Acute pharyngitis, unspecified Presentation: 02/13 18:46 Chief complaint: Patient states: diagnosed with strep 2 weeks ago. Pt states that her cm10 sore throat is not getting any better. Coronavirus screen: Vaccine status: Patient reports receiving the 2nd dose of the covid vaccine. Client denies travel out of the [place] in the last 14 days. Ebola Screen: Patient denies travel to an Ebola-affected area in the 21 days before illness onset. No symptoms or risks identified at this time. Initial Sepsis Screen: Does the patient meet any 2 criteria? No. Patient's initial sepsis screen is negative. Does the patient have a suspected source of infection? No. Patient's initial sepsis screen is negative. Risk Assessment: Do you want to hurt yourself or someone else? Patient reports no desire to harm self or others. Onset of symptoms was February 13, 2023. 18:46 Method Of Arrival: Ambulatory cm10 18:46 Acuity: GARCÍA 4 cm10 Historical: - Allergies: 18:45 No Known Allergies; cm10 - PMHx: 18:45 Diverticulitis; Genital herpes simplex; cm10 18:45 thrombocytopenia; cm10 - PSHx: 18:45 section; section; section; cm10 - Immunization history:: Adult Immunizations unknown. - Social history:: Smoking status: Patient denies any tobacco usage or history of. Screenin:00 [facility] ED Fall Risk Assessment (Adult) History of falling in the last 3 months, jb4 including since admission No falls in past 3 months (0 pts) Confusion or Disorientation No (0 pts) Score/Fall Risk Level 0 - 2 = Low Risk Oriented to surroundings, Maintained a safe environment. Abuse screen: Denies threats or abuse. Nutritional screening: No deficits noted. Tuberculosis screening: No symptoms or risk factors identified. Assessment: 20:00 General: Appears in no apparent distress. comfortable, Behavior is calm, cooperative, jb4 appropriate for age. Pain: Complains of pain in throat Pain does not radiate. Pain currently is 10 out of 10 on a pain scale. Neuro: Level of Consciousness is awake, alert, obeys commands, Oriented to person, place, time, situation. Cardiovascular: Patient's skin is warm and dry. Respiratory: Airway is patent Respiratory effort is even, unlabored, Respiratory pattern is regular, symmetrical. GI: No signs and/or symptoms were reported involving the gastrointestinal system. : No signs and/or symptoms were reported regarding the genitourinary system. EENT: Throat is clear with gag reflex present. Derm: Skin is intact, Skin is pink, warm \T\ dry. Musculoskeletal: Circulation, motion, and sensation intact. Range of motion: intact in all extremities. 21:39 Reassessment: Patient appears in no apparent distress at this time. Patient and/or jb4 family updated on plan of care and expected duration. Pain level reassessed. Patient is alert, oriented x 3, equal unlabored respirations, skin warm/dry/pink. Vital Signs: 18:46 BP 144 / 101; Pulse 94; Resp 18; Temp 98; Pulse Ox 98% ; Weight 79.38 kg; Height 5 ft. cm10 2 in. ; Pain 10/10; 22:39 BP 145 / 96; Pulse 76; Resp 16; Pulse Ox 100% on R/A; jb4 18:46 Body Mass Index 32.01 (79.38 kg, 157.48 cm) cm10 18:46 Pain Scale: Adult cm10 ED Course: 18:24 Patient arrived in ED. jj6 18:29 Tyrel Robbins PA is PHCP. cp 18:29 Nikita Jesus MD is Attending Physician. cp 18:47 Triage completed. cm10 18:47 Arm band placed on Patient placed in waiting room. cm10 20:00 Bradley Reyes, RN is Primary Nurse. jb4 20:00 Patient has correct armband on for positive identification. Bed in low position. Call [facility] light in reach. Side rails up X 1. 20:00 Initial lab(s) drawn, by me, sent to lab. COVID swab sent to lab. Strep swab sent to [facility] lab. Inserted saline lock: 24 gauge in left hand, using aseptic technique. Blood collected. 22:23 XRAY Chest (1 view) In Process Unspecified. EDMS 22:39 No provider procedures requiring assistance completed. IV discontinued, intact, jb4 bleeding controlled, No redness/swelling at site. Pressure dressing applied. Administered Medications: 21:53 Drug: Dexamethasone PO 10 mg PO once; may give if not Route: PO; jb4 Medication: 22:39 VIS not applicable for this client. jb4 Outcome: 22:31 Discharge ordered by MD. cp 22:39 Discharged to home ambulatory, jb4 22:39 Condition: stable 22:39 Discharge instructions given to patient, Instructed on discharge instructions, follow up and referral plans. medication usage, Demonstrated understanding of instructions, follow-up care, medications, Prescriptions given X 2, 22:40 Patient left the ED. jb4 Signatures: Dispatcher [employer] EDMS Tyrel Robbins PA PA cp Bryson, James, RN RN jb4 Laura [email or web address] Darleen Akers RN RN cm10
--- NOTE | 2023-02-13 22:36 | RAD REPORT ---
EXAM DESCRIPTION: Bert Single View02/13/2023 10:21 pm CLINICAL HISTORY: cough COMPARISON: none FINDINGS: The lungs appear clear of acute infiltrate. The heart is normal size IMPRESSION: No acute abnormalities displayed
[2023-02-13 23:33] VITALS: TEMP 98
[2023-02-13 23:35] VITALS: BP 145/96; O2SAT 100
== END 2023-02-13 22:40 | disposition home or self-care (01) ==
LOC: ER 18:19
DX: J02.9 Acute pharyngitis, unspecified (principal); R05.9 Cough, unspecified; Z11.52 Encounter for screening for COVID-19
CPT/HCPCS: 36415; 71045; 86308; 87070; 87081; 87635; 99284; J8540